=== PATIENT | male | born 1965 | race Caucasian/White ===

== ENCOUNTER 2020-03-16 06:04 | Outpatient (REF) | payer OTHER, SELFPAY | END 2020-03-16 06:05 | disposition home or self-care (01) | LOC: HO.LAB 06:04 | PROVIDERS: Visit Provider Internal Medicine | DX: Z20.828 Contact with and (suspected) exposure to other viral communicable diseases (principal) | CPT/HCPCS: C9803; U0003 ==

== ENCOUNTER 2020-09-26 06:03 | Outpatient (REF) | payer OTHER, SELFPAY ==
[2020-09-26 12:09] LABS: Alanine Aminotransferase 27 U/L (0-40); Albumin Level 4.1 g/dL (3.5-5.0); Alkaline Phosphatase 131 U/L (39-117); Anion Gap 15 (12-20); Aspartate Amino Transferase 20 U/L (5-37); Bilirubin Total 0.7 mg/dL (0.0-1.0); Blood Urea Nitrogen 16 mg/dL (9-16); Calcium 9.1 mg/dL (8.4-10.2); Carbon Dioxide 26 mmol/L (22-29); Chloride 99 mmol/L (96-108); Cholesterol 191 mg/dL; Estimated Glomerular Filt Rate > 60; Glucose Fasting 130 mg/dL (60-99); HDL Cholesterol 63 mg/dL; LDL Cholesterol Calculated 105 mg/dl; Potassium 4.7 mmol/L (3.3-5.1); Sodium 135 mmol/L (135-145); Total Protein 7.1 g/dL (6.5-8.0); Triglycerides 117 mg/dL
[2020-09-26 12:31] LABS: Prostate Specific Antigen Scr 0.89 ng/mL (<0.05-4.0); TSH reflex Free T4 2.43 uIU/mL (0.32-4.0)
== END 2020-09-26 06:04 | disposition home or self-care (01) ==
LOC: HO.HMGCLDS 06:03
PROVIDERS: PCP Nurse Practitioner Family; Visit Provider Nurse Practitioner Family
DX: Z00.00 Encounter for general adult medical examination without abnormal findings (principal); R74.8 Abnormal levels of other serum enzymes; R73.01 Impaired fasting glucose; Z12.5 Encounter for screening for malignant neoplasm of prostate
CPT/HCPCS: 36415; 80053; 80061; 84153; 84443

== ENCOUNTER 2020-11-20 08:22 | Outpatient (REF) | payer OTHER, SELFPAY ==
[2020-11-20 11:35] LABS: Estimated Average Glucose 137 mg/dL; Hemoglobin A1c % 6.4 %
[2020-11-20 12:26] LABS: Gamma Glutamyl Transpeptidase 93 U/L (11-51)
== END 2020-11-20 08:23 | disposition home or self-care (01) ==
LOC: HO.HMGCLDS 08:22
PROVIDERS: PCP Nurse Practitioner Family; Visit Provider Nurse Practitioner Family
DX: R73.01 Impaired fasting glucose (principal); R74.8 Abnormal levels of other serum enzymes
CPT/HCPCS: 36415; 82977; 83036

== ENCOUNTER 2021-03-05 18:43 | Emergency (ER) | payer OTHER, SELFPAY ==
--- NOTE | ~2021-03-05 | XR_ITS ---
EXAMINATION: XR CHEST CLINICAL INFORMATION: Cough. COMPARISON: None TECHNIQUE: Frontal view of the chest was obtained. FINDINGS: Patchy bilateral lower lobe airspace opacities which could represent atelectasis versus early infiltrates. No pleural effusion or pneumothorax. No cardiomegaly. XR/XR chest 1V IMPRESSION: Patchy bilateral atelectasis versus early infiltrates.
[2021-03-05 18:58] VITALS: BP 145/86; PULSE 125; PULSE 130; RESP 22; TEMP 37.3; O2SAT 95; BMI 43.0
[2021-03-05 19:09] LABS: Glucose, Whole Blood 271 mg/dL (60-115)
--- NOTE | 2021-03-05 19:10 | ED.DIZZY ---
HPI - Dizziness General Chief Complaint: Dizziness Stated Complaint: weakness afib Time Seen by Provider: 03/05/21 19:06 Source: patient Mode of arrival: ambulatory Limitations: no limitations History of Present Illness HPI Narrative: Patient's history of hypertension prediabetic not on any medication HB A1c 6.4 in 12/02 complaining of body aches tiredness cough for last 3 weeks patient took edible marijuana earlier today which he takes all the time since been feeling anxious and lousy also complaining of cough for last few days mostly dry. No fever no chills patient not been vaccinated against COVID Related Data Previous Rx's Medication Instructions Recorded lisinopril 40 mg tablet 40 mg PO DAILY #90 tab 12/12/20 omeprazole 20 mg capsule,delayed 20 mg PO DAILY 30 Days #30 cap 12/12/20 release amlodipine 10 mg tablet 10 mg PO DAILY 90 Days #90 tab 02/15/21 blood-glucose meter #1 ea 03/05/21 cefuroxime axetil 500 mg tablet 500 mg PO BID 10 Days #20 tab 03/05/21 lancets 32 gauge #100 ea 03/05/21 metformin 850 mg tablet 850 mg PO BID #60 tab 03/05/21 Allergies Allergy/AdvReac Type Severity Reaction Status Date / Time No Known Allergies Allergy Verified 02/15/21 08:47 Review of Systems Review of Systems: Yes all other systems are reviewed and are negative [facility] Past Medical History Medical History (Updated 03/05/21 @ 22:51 by Shashi Mccloud MD) Carpal tunnel syndrome Chronic GERD Diabetes mellitus type 2 in obese HTN (hypertension) Hyperkalemia Tremor Surgical History History of inguinal hernia repair History of vasectomy Family History Family History Father Breast cancer Mental health disorder Substance use disorder Mother Liver cancer Substance use disorder Brother No problems noted. Sister No problems noted. Sister No problems noted. Sister No problems noted. Social History Social History Housing: Other Patient Tobacco Use Status: Former Tobacco user (quit 28 years ago ) Advance Directives: No Current occupational status: employed Physical Exam Vital Signs: Vital Signs: Last Vital Signs Temp 99.1 F 03/05/21 18:58 Pulse 125 H 03/05/21 18:58 Resp 22 H 03/05/21 18:58 Pulse Ox 95 03/05/21 18:58 Body Mass Index 43.0 Appearance: Alert. Oriented X3. No acute distress. Eyes: No pallor icterus ENT: Pharynx normal. Oral Mucosa moist Neck: Normal inspection. Neck supple. CVS: Normal heart rate and rhythm. Pulses normal. Respiratory: No respiratory distress. Equal air entry bilateral, no wheezing/rales/rhonchi Abdomen: Soft and nontender. Bowel sounds are present, no mass palpable, no CVA tenderness Skin: Skin warm and dry. Normal skin color. Normal skin turgor. Extremities: No lower extremity edema. No calf tenderness Neuro: Oriented X 3. No motor deficit. MDM - Dizziness MDM Narrative Medical decision making narrative: Patient diabetic not on medications will start him on metformin, chest x-ray of a possible bronchitis will start patient on Ceftin otherwise patient labs are stable will discharge patient home Lab Data Attestation: I reviewed the patient's lab results. Result diagrams: 03/05/21 19:47 03/05/21 19:47 Labs: Lab Results 03/05/21 03/05/21 03/05/21 Range/Units 19:05 19:43 19:47 WBC 10.1 (4.8-10.8) X10*3/uL RBC 4.48 L (4.60-5.80) X10*6/uL Hgb 14.2 (14.0-18.0) g/dl Hct 42.2 (42.0-52.0) % MCV 94.2 (80.0-98.0) fL MCH 31.7 (27.0-33.0) pg MCHC 33.6 (31.0-36.0) g/dl RDW 12.8 (11.0-16.0) % Plt Count 211 (160-400) X10*3/uL MPV 9.4 (9.4-12.4) fL Immature Gran % (Auto) 1.8 H (0.0-0.4) % Neut % (Auto) 79.6 H (45-73) % Lymph % (Auto) 9.1 L (20-40) % [place] % (Auto) 8.4 (2-11) % Eos % (Auto) 0.5 (0-4) % Baso % (Auto) 0.6 (0-2) % Lymph # (Auto) 0.9 L (1.2-4.9) X10*3/uL [place] # (Auto) 0.9 (0.1-1.2) X10*3/uL Eos # (Auto) 0.1 (0.0-0.4) X10*3/uL Baso # (Auto) 0.1 (0.0-0.2) X10*3/uL Abs Immat Gran (auto) 0.18 H (0.00-0.03) X10*3/uL Absolute Neuts (auto) 8.1 (2.0-8.3) x10*3/uL Absolute Nucleated RBC 0.000 (0.0-0.012) X10*3/uL Nucleated RBC % (auto) 0.0 (0.0-0.2) /100WBC Sodium (135-145) mmol/L Potassium (3.3-5.1) mmol/L Chloride (96-108) mmol/L Carbon Dioxide (22-29) mmol/L Anion Gap (12-20) BUN (9-16) mg/dL Creatinine (0.5-1.4) mg/dL Estim Creat Clear Calc Estimated GFR POC Glucose 271 H (60-115) mg/dL Random Glucose (60-115) mg/dL Estimat Average Glucose mg/dL Hemoglobin A1c % % Calcium (8.4-10.2) mg/dL Total Bilirubin (0.0-1.0) mg/dL AST (5-37) U/L ALT (0-40) U/L Alkaline Phosphatase (39-117) U/L Total Protein (6.5-8.0) g/dL Albumin (3.5-5.0) g/dL Urine Color Urine Appearance Urine pH (5.0-8.0) Ur Specific [place] (1.005-1.025) Urine Protein (NEG-TRACE) MG/DL Urine Glucose (UA) (NEG) MG/DL Urine Ketones (NEG) MG/DL Urine Blood (NEG) Urine Nitrite (NEG) Ur Leukocyte Esterase (NEG) Urine RBC (0) /HPF Urine WBC (0-4) /HPF Ur Squamous Epith Cells /LPF Urine Bacteria /LPF Hyaline Casts /LPF Influenza Type A (PCR) NEGATIVE (Negative) Influenza Type B (PCR) NEGATIVE (Negative) RSV RNA Qual (PCR) NEGATIVE (Negative) SARS-CoV-2 RNA (RT-PCR) NEGATIVE (Negative) 03/05/21 03/05/21 03/05/21 Range/Units 19:47 19:47 21:56 WBC (4.8-10.8) X10*3/uL RBC (4.60-5.80) X10*6/uL Hgb (14.0-18.0) g/dl Hct (42.0-52.0) % MCV (80.0-98.0) fL MCH (27.0-33.0) pg MCHC (31.0-36.0) g/dl RDW (11.0-16.0) % Plt Count (160-400) X10*3/uL MPV (9.4-12.4) fL Immature Gran % (Auto) (0.0-0.4) % Neut % (Auto) (45-73) % Lymph % (Auto) (20-40) % [place] % (Auto) (2-11) % Eos % (Auto) (0-4) % Baso % (Auto) (0-2) % Lymph # (Auto) (1.2-4.9) X10*3/uL [place] # (Auto) (0.1-1.2) X10*3/uL Eos # (Auto) (0.0-0.4) X10*3/uL Baso # (Auto) (0.0-0.2) X10*3/uL Abs Immat Gran (auto) (0.00-0.03) X10*3/uL Absolute Neuts (auto) (2.0-8.3) x10*3/uL Absolute Nucleated RBC (0.0-0.012) X10*3/uL Nucleated RBC % (auto) (0.0-0.2) /100WBC Sodium 133 L (135-145) mmol/L Potassium 4.6 (3.3-5.1) mmol/L Chloride 101 (96-108) mmol/L Carbon Dioxide 23 (22-29) mmol/L Anion Gap 14 (12-20) BUN 20 H (9-16) mg/dL Creatinine 0.97 (0.5-1.4) mg/dL Estim Creat Clear Calc 119.5 Estimated GFR > 60 POC Glucose 199 H (60-115) mg/dL Random Glucose 299 H (60-115) mg/dL Estimat Average Glucose 151 mg/dL Hemoglobin A1c % 6.9 % Calcium 8.3 L D (8.4-10.2) mg/dL Total Bilirubin 0.3 (0.0-1.0) mg/dL AST 21 (5-37) U/L ALT 31 (0-40) U/L Alkaline Phosphatase 139 H (39-117) U/L Total Protein 6.6 (6.5-8.0) g/dL Albumin 3.9 (3.5-5.0) g/dL Urine Color Urine Appearance Urine pH (5.0-8.0) Ur Specific [place] (1.005-1.025) Urine Protein (NEG-TRACE) MG/DL Urine Glucose (UA) (NEG) MG/DL Urine Ketones (NEG) MG/DL Urine Blood (NEG) Urine Nitrite (NEG) Ur Leukocyte Esterase (NEG) Urine RBC (0) /HPF Urine WBC (0-4) /HPF Ur Squamous Epith Cells /LPF Urine Bacteria /LPF Hyaline Casts /LPF Influenza Type A (PCR) (Negative) Influenza Type B (PCR) (Negative) RSV RNA Qual (PCR) (Negative) SARS-CoV-2 RNA (RT-PCR) (Negative) 03/05/21 Range/Units 22:12 WBC (4.8-10.8) X10*3/uL RBC (4.60-5.80) X10*6/uL Hgb (14.0-18.0) g/dl Hct (42.0-52.0) % MCV (80.0-98.0) fL MCH (27.0-33.0) pg MCHC (31.0-36.0) g/dl RDW (11.0-16.0) % Plt Count (160-400) X10*3/uL MPV (9.4-12.4) fL Immature Gran % (Auto) (0.0-0.4) % Neut % (Auto) (45-73) % Lymph % (Auto) (20-40) % [place] % (Auto) (2-11) % Eos % (Auto) (0-4) % Baso % (Auto) (0-2) % Lymph # (Auto) (1.2-4.9) X10*3/uL [place] # (Auto) (0.1-1.2) X10*3/uL Eos # (Auto) (0.0-0.4) X10*3/uL Baso # (Auto) (0.0-0.2) X10*3/uL Abs Immat Gran (auto) (0.00-0.03) X10*3/uL Absolute Neuts (auto) (2.0-8.3) x10*3/uL Absolute Nucleated RBC (0.0-0.012) X10*3/uL Nucleated RBC % (auto) (0.0-0.2) /100WBC Sodium (135-145) mmol/L Potassium (3.3-5.1) mmol/L Chloride (96-108) mmol/L Carbon Dioxide (22-29) mmol/L Anion Gap (12-20) BUN (9-16) mg/dL Creatinine (0.5-1.4) mg/dL Estim Creat Clear Calc Estimated GFR POC Glucose (60-115) mg/dL Random Glucose (60-115) mg/dL Estimat Average Glucose mg/dL Hemoglobin A1c % % Calcium (8.4-10.2) mg/dL Total Bilirubin (0.0-1.0) mg/dL AST (5-37) U/L ALT (0-40) U/L Alkaline Phosphatase (39-117) U/L Total Protein (6.5-8.0) g/dL Albumin (3.5-5.0) g/dL Urine Color YELLOW Urine Appearance CLEAR Urine pH 6.0 (5.0-8.0) Ur Specific [place] 1.025 (1.005-1.025) Urine Protein 1+ H (NEG-TRACE) MG/DL Urine Glucose (UA) >=1000 H (NEG) MG/DL Urine Ketones NEG (NEG) MG/DL Urine Blood NEG (NEG) Urine Nitrite NEG (NEG) Ur Leukocyte Esterase NEG (NEG) Urine RBC 1-4 (0) /HPF Urine WBC 1-4 (0-4) /HPF Ur Squamous Epith Cells 1+ /LPF Urine Bacteria 1+ /LPF Hyaline Casts 5-9 /LPF Influenza Type A (PCR) (Negative) Influenza Type B (PCR) (Negative) RSV RNA Qual (PCR) (Negative) SARS-CoV-2 RNA (RT-PCR) (Negative) Discharge Plan Discharge Clinical Impression: Diabetes mellitus Qualifiers: Diabetes mellitus type: type 2 Diabetes mellitus superintendent terminal insulin use: without superintendent terminal use Diabetes mellitus complication status: without complication Qualified Code(s): E11.9 - Type 2 diabetes mellitus without complications Patient Disposition: Home, Self-Care Instructions: Type 2 Diabetes in Adults: New Diagnosis (ED), Acute Bronchitis (ED) Additional Instructions: Drink plenty of fluids Antibiotics as advised Diet and weight reduction therapy advised Start taking metformin 1 tablet twice daily Check blood sugar twice daily it should be less than 200 Follow-up with your PCP/sap technical developer for further workup Prescriptions: New metformin 850 mg tablet 850 mg PO BID Qty: 60 RF: 0 cefuroxime axetil 500 mg tablet 500 mg PO BID 10 Days Qty: 20 RF: 0 (DME) lancets 32 gauge misc See Rx Instructions .Route Qty: 100 RF: 0 (DME) blood-glucose meter Kit See Rx Instructions .Route Qty: 1 RF: 0 No Action omeprazole 20 mg capsule,delayed release(DR/EC) 20 mg PO DAILY 30 Days Qty: 30 RF: 2 lisinopril 40 mg tablet 40 mg PO DAILY Qty: 90 RF: 0 amlodipine 10 mg tablet 10 mg PO DAILY 90 Days Qty: 90 RF: 0 Referrals: Nina Martinez MD [Physician] - 2 weeks
[2021-03-05 19:50] LABS: MANUAL DIFF FLAG NO
[2021-03-05 19:52] LABS: Basophils Absolute Auto 0.1 X10*3/uL (0.0-0.2); Basophils Percent Auto 0.6 % (0-2); Eosinophils Absolute Auto 0.1 X10*3/uL (0.0-0.4); Eosinophils Percent Auto 0.5 % (0-4); Hematocrit 42.2 % (42.0-52.0); Hemoglobin 14.2 g/dl (14.0-18.0); Imm Gran Abs Auto 0.18 X10*3/uL (0.00-0.03); Imm Gran Pct Auto 1.8 % (0.0-0.4); Lymphocytes Absolute Auto 0.9 X10*3/uL (1.2-4.9); Lymphocytes Percent Auto 9.1 % (20-40); Mean Corpuscular HGB Conc 33.6 g/dl (31.0-36.0); Mean Corpuscular Hemoglobin 31.7 pg (27.0-33.0); Mean Corpuscular Volume 94.2 fL (80.0-98.0); Mean Platelet Volume 9.4 fL (9.4-12.4); Monocytes Absolute Auto 0.9 X10*3/uL (0.1-1.2); Monocytes Percent Auto 8.4 % (2-11); Neutrophils Absolute Auto 8.1 x10*3/uL (2.0-8.3); Neutrophils Percent Auto 79.6 % (45-73); Platelet Count 211 X10*3/uL (160-400); Red Blood Count 4.48 X10*6/uL (4.60-5.80); Red Cell Distribution Width 12.8 % (11.0-16.0); White Blood Count 10.1 X10*3/uL (4.8-10.8)
[2021-03-05] MEDS: 0.9 % Sodium Chloride 1,000 ML 999 ML IVCONT (19:53)
[2021-03-05] MEDS: Ketorolac Tromethamine 15 MG/ML VIAL 30 MG IVPUSH (19:53)
[2021-03-05 20:07] LABS: Alanine Aminotransferase 31 U/L (0-40); Albumin Level 3.9 g/dL (3.5-5.0); Alkaline Phosphatase 139 U/L (39-117); Anion Gap 14 (12-20); Aspartate Amino Transferase 21 U/L (5-37); Bilirubin Total 0.3 mg/dL (0.0-1.0); Blood Urea Nitrogen 20 mg/dL (9-16); Calcium 8.3 mg/dL (8.4-10.2); Carbon Dioxide 23 mmol/L (22-29); Chloride 101 mmol/L (96-108); Creatinine Clr Calc Pharmacy 119.5; Estimated Glomerular Filt Rate > 60; Glucose Random 299 mg/dL (60-115); Potassium 4.6 mmol/L (3.3-5.1); Sodium 133 mmol/L (135-145); Total Protein 6.6 g/dL (6.5-8.0)
[2021-03-05 20:36] LABS: Influenza A PCR NEGATIVE (Negative); Influenza B PCR NEGATIVE (Negative); Resp Syncy Virus RNA Qual PCR NEGATIVE (Negative); SARS COV2 PCR INHOUSE NEGATIVE (Negative)
[2021-03-05 22:01] LABS: Glucose, Whole Blood 199 mg/dL (60-115)
[2021-03-05 22:17] LABS: Estimated Average Glucose 151 mg/dL; Hemoglobin A1c % 6.9 %
[2021-03-05 22:22] LABS: Appearance Urine CLEAR; Color Urine YELLOW; Glucose Urine UA >=1000 MG/DL (NEG); Leukocyte Esterase Urine NEG (NEG); Nitrite Urine NEG (NEG); Specific Gravity - Urine 1.025 (1.005-1.025); UACC Culture Trigger NO; Urine Blood NEG (NEG); Urine Ketones NEG (NEG); Urine Protein 1+ MG/DL (NEG-TRACE)
[2021-03-05 22:51] LABS: Bacteria Urine 1+ /LPF; Squamous Epithelial Cell Urine 1+ /LPF
[2021-03-05] MEDS: metFORMIN HCl 850 MG TABLET PO (22:57)
== END 2021-03-06 00:52 | disposition home or self-care (01) ==
PROVIDERS: Emergency Provider Internal Medicine
DX: E11.9 Type 2 diabetes mellitus without complications (principal); Z20.822 Contact with and (suspected) exposure to COVID-19; R42 Dizziness and giddiness; R53.1 Weakness; I10 Essential (primary) hypertension
CPT/HCPCS: 0241U; 36415; 71045; 80053; 81001; 82947; 83036; 85025; 96361; 96374; 99284; J1885

== ENCOUNTER 2021-05-09 06:00 | Emergency (ER) | payer OTHER, SELFPAY ==
--- NOTE | ~2021-05-09 | XR_ITS ---
EXAMINATION: XR CHEST CLINICAL INFORMATION: Chest pain COMPARISON: 03/05/2021 TECHNIQUE: Frontal view of the chest was obtained. FINDINGS: Cardiac leads overlie the chest. The lungs are well expanded. Patchy airspace opacity at the right base. No pleural effusion or pneumothorax. The cardiomediastinal silhouette is within normal limits. XR/XR chest 1V IMPRESSION: Patchy right basilar airspace opacity could be infectious or inflammatory. Atelectasis possible.
[2021-05-09 06:21] VITALS: BP 149/96; PULSE 106; RESP 18; TEMP 37; O2SAT 97; BMI 43.0
--- NOTE | 2021-05-09 06:39 | ECG_ITS ---
Test Reason : CHEST PAIN Blood Pressure : / mmHG Vent. Rate : 098 BPM Atrial Rate : 098 BPM P-R Int : 186 ms QRS Dur : 110 ms QT Int : 356 ms P-R-T Axes : 047 047 027 degrees QTc Int : 454 ms Normal sinus rhythm Cannot rule out Anterior infarct , age undetermined Abnormal ECG No previous ECGs available Referred By: Noe Lopez Electronically Signed By:TERRY JAMES MD
--- NOTE | 2021-05-09 06:46 | ED_ITS ---
HPI - Chest Pain General Chief Complaint: Chest Pain Stated Complaint: chest pain, BS level? Time Seen by Provider: 05/09/21 06:38 Source: patient Limitations: no limitations History of Present Illness HPI narrative: This is a 55-year-old male with a history of hypertension, and recent diagnosis of diabetes, also elevated cholesterol who is on 2 blood pressure medications as well as metformin, and a statin. The patient for about a week has had some soreness in his mid chest which she attributed to muscular pain. He states that it did get better with ibuprofen and is worse when he pushes on the area. This pain was mild. 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 Later in the morning around 05:00 the patient went on break and began to feel dizzy and decided to come to the hospital for evaluation. He denies any nausea, sweats, shortness of breath, radiation of the pain. He is not a smoker, having quit about 25 years ago. He does have an outpatient echocardiogram scheduled Related Data Previous Rx's Medication Instructions Recorded amlodipine 10 mg tablet 10 mg PO DAILY 90 Days #90 tab 02/15/21 blood-glucose meter #1 ea 03/05/21 cefuroxime axetil 500 mg tablet 500 mg PO BID 10 Days #20 tab 03/05/21 omeprazole 20 mg capsule,delayed 20 mg PO DAILY 30 Days #30 cap 03/07/21 release atorvastatin 10 mg tablet 10 mg PO BEDTIME 90 Days #90 tab 03/12/21 lisinopril 40 mg tablet 40 mg PO DAILY #90 tab 03/28/21 metformin 850 mg tablet 850 mg PO BID #60 tab 03/28/21 blood sugar diagnostic (FreeStyle #100 ea 04/23/21 Lite Strips) lancets 32 gauge #100 ea 04/23/21 Allergies Allergy/AdvReac Type Severity Reaction Status Date / Time No Known Allergies Allergy Verified 04/23/21 10:03 Review of Systems Verdana 4l Review of Systems: Yes all other systems are reviewed and Verdana 4d are negative Verdana 4l Constitutional: Verdana 4d Constitutional: Verdana 4d Verdana 4d Reports as per HPI Verdana 4l Eyes: Verdana 4d Verdana 4d Eyes: Verdana 4d Reports no additional eye complaints Verdana 4l ENT: Verdana 4d Reports system reviewed and no additional complaints, except as documented and Reports dizziness Verdana 4l Cardiovascular: Verdana 4d Cardiovascular: Verdana 4d Verdana 4d Reports as per HPI and Denies syncope Verdana 4l Respiratory: Verdana 4d Verdana 4d Respiratory: Verdana 4d Reports no additional respiratory complaints Verdana 4l Gastrointestinal: Verdana 4d Gastrointestinal: Verdana 4d Verdana 4d Reports no additional gastrointestinal complaints Verdana 4l Musculoskeletal: Verdana 4d Musculoskeletal: Verdana 4d Verdana 4d Reports no additional musculoskeletal complaints Verdana 4l Integumentary/Breasts: Verdana 4d Skin/Breast: Verdana 4d Verdana 4d Reports other (No lower extremity swelling) Verdana 4l Neurologic: Verdana 4d Reports dizziness, Denies syncope and Denies Sensory deficit (Neuro) [facility] Past Medical History Medical History Carpal tunnel syndrome Chronic GERD Diabetes mellitus type 2 in obese HTN (hypertension) Hyperkalemia Tremor Surgical History History of inguinal hernia repair History of vasectomy Family History Family History Father Breast cancer Mental health disorder Substance use disorder Mother Liver cancer Substance use disorder Brother No problems noted. Sister No problems noted. Sister No problems noted. Sister No problems noted. Social History Social History Housing: Other Alcohol intake: current Alcohol intake frequency: a few times a week Patient Tobacco Use Status: Former Tobacco user e-Cigarette/Vaping Use: Never Used Use of substances other than those prescribed or required for medical reasons: No Advance Directives: No Advance Directives Information Provided: No Current occupational status: employed Cognitive needs: No Hearing needs: No Vision needs: No Physical Exam Verdana 4l Vital Signs: Verdana 4d Verdana 4d Vital Signs: Verdana 4d Verdana 4Bd Last Vital Signs Verdana 4d Road Roller Operator New 4d Road Roller Operator New 4d Temp 98.6 F 05/09/21 07:04 Road Roller Operator New 4d Pulse 103 H 05/09/21 07:04 Road Roller Operator New 4d Resp 19 05/09/21 07:04 BP 138/94 H 05/09/21 07:04 Pulse Ox 96 05/09/21 07:04 BMI result Body Mass Index 43.0 Const: Other: Moderately obese General: cooperative, no acute distress and alert Orientat ion/consciousness: patient oriented x3 HENMT: Head: Yes normal to inspection Eyes: General: appearance normal, both eyes and all related structures Eyelids: Yes eyelids normal Conjunctivae: conjunctivae normal Pupils: Equal, round and reactive pupils present Neck: Neck: Yes normal visual inspection and Yes supple Chest: Chest palpation & inspection: normal inspection of the chest Resp: Effort & Inspection: normal respiratory effort Auscultation: clear to auscultation bilaterally Cardio: Rate: tachycardic Rhythm: regular rhythm Heart sounds: S1 normal heart sound present, S2 normal heart sound present, no gallops, no murmurs and no rubs GI: Palpation (GI): Soft to palpation, nontender and Other GI palpation findings present (Non-distended) Auscultation: normal bowel sounds Skin: General skin exam: no rashes or lesions noted Neuro: General: patient oriented x3, no focal motor deficits and CN's II-XI intact bilaterally Cranial nerves: Yes Equal, round and reactive pupils present Cognition (Neuro): normal cognition Motor exam (neuro): 5/5 motor strength present throughout Sensory Exam: No Sensory deficit (Neuro) Extrem: General: Yes normal to inspection and Yes no pedal edema Psych: Appearance: grossly normal Affect: normal affect MDM - Chest Pain MDM Narrative Medical decision making narrative: Patient with risk factors for coronary disease include hypertension, diabetes, hypercholesterolemia, obesity. Patient has had stuttering chest pain that he thought was likely chest wall pain but was midsternal. Pain had different pain last night which was more left-sided, though mild but was later associated with dizziness. Patient does have persistent tachycardia here. D-dimer is negative. Troponin x2 were negative. Patient does have poor R-wave progression on his EKG which might suggest prior anterior infarct. Case discussed with Dr. Tran of Cardiology who recommend the patient have a stat echo to evaluate for any wall motion abnormality, and if there is none the patient can be admitted here for stress testing. Patient has been pain-free in the ED Dr. Tran recommended stress testing in the ED. This was done and was negative and Dr. Tran has advised that the patient can be discharged home. Patient has remained pain-free. Patient has had 2- troponins, negative D-dimer, negative echocardiogram, negative stress test. Patient does have risk factors for coronary disease but at this point has had a thorough evaluation and is safe for outpatient follow-up. Differential Diagnosis Differential diagnosis: Likely unstable angina pectoris, atypical chest pain, st elevation myocardial infarction and costochondritis Lab Data Attestation: I reviewed the patient's lab results. Result diagrams: 05/09/21 07:28 05/09/21 07:22 Labs: Lab Results 05/09/21 05/09/21 05/09/21 Range/Units 07:11 07:22 07:23 WBC (4.8-10.8) X10*3/uL RBC (4.60-5.80) X10*6/uL Hgb (14.0-18.0) g/dl Hct (42.0-52.0) % MCV (80.0-98.0) fL MCH (27.0-33.0) pg MCHC (31.0-36.0) g/dl RDW (11.0-16.0) % Plt Count (160-400) X10*3/uL MPV (9.4-12.4) fL Immature Gran % (Auto) (0.0-0.4) % Neut % (Auto) (45-73) % Lymph % (Auto) (20-40) % [place] % (Auto) (2-11) % Eos % (Auto) (0-4) % Baso % (Auto) (0-2) % Lymph # (Auto) (1.2-4.9) X10*3/uL [place] # (Auto) (0.1-1.2) X10*3/uL Eos # (Auto) (0.0-0.4) X10*3/uL Baso # (Auto) (0.0-0.2) X10*3/uL Abs Immat Gran (auto) (0.00-0.03) X10*3/uL Absolute Neuts (auto) (2.0-8.3) x10*3/uL Absolute Nucleated RBC (0.0-0.012) X10*3/uL Nucleated RBC % (auto) (0.0-0.2) /100WBC D-Dimer High Sensitivty NG/ML Sodium 132 L (135-145) mmol/L Potassium 4.6 (3.3-5.1) mmol/L Chloride 99 (96-108) mmol/L Carbon Dioxide 25 (22-29) mmol/L Anion Gap 13 (12-20) BUN 19 H (9-16) mg/dL Creatinine 0.93 (0.5-1.4) mg/dL Estim Creat Clear Calc 128.4 Estimated GFR > 60 POC Glucose 105 (60-115) mg/dL Random Glucose 112 D (60-115) mg/dL Calcium 9.0 D (8.4-10.2) mg/dL Troponin I High Sens 7.5 (<3.5-35.0) ng/L COVID-19 ([facility]) (Negative) COVID-19 Clin Com 05/09/21 05/09/21 05/09/21 Range/Units 07:28 08:02 08:50 WBC 8.6 (4.8-10.8) X10*3/uL RBC 4.67 (4.60-5.80) X10*6/uL Hgb 14.0 (14.0-18.0) g/dl Hct 42.5 (42.0-52.0) % MCV 91.0 (80.0-98.0) fL MCH 30.0 (27.0-33.0) pg MCHC 32.9 (31.0-36.0) g/dl RDW 12.3 (11.0-16.0) % Plt Count 227 (160-400) X10*3/uL MPV 9.3 L (9.4-12.4) fL Immature Gran % (Auto) 1.6 H (0.0-0.4) % Neut % (Auto) 68.9 (45-73) % Lymph % (Auto) 16.4 L (20-40) % [place] % (Auto) 10.5 (2-11) % Eos % (Auto) 1.9 (0-4) % Baso % (Auto) 0.7 (0-2) % Lymph # (Auto) 1.4 (1.2-4.9) X10*3/uL [place] # (Auto) 0.9 (0.1-1.2) X10*3/uL Eos # (Auto) 0.2 (0.0-0.4) X10*3/uL Baso # (Auto) 0.1 (0.0-0.2) X10*3/uL Abs Immat Gran (auto) 0.14 H (0.00-0.03) X10*3/uL Absolute Neuts (auto) 5.9 (2.0-8.3) x10*3/uL Absolute Nucleated RBC 0.000 (0.0-0.012) X10*3/uL Nucleated RBC % (auto) 0.0 (0.0-0.2) /100WBC D-Dimer High Sensitivty NG/ML Sodium (135-145) mmol/L Potassium (3.3-5.1) mmol/L Chloride (96-108) mmol/L Carbon Dioxide (22-29) mmol/L Anion Gap (12-20) BUN (9-16) mg/dL Creatinine (0.5-1.4) mg/dL Estim Creat Clear Calc Estimated GFR POC Glucose (60-115) mg/dL Random Glucose (60-115) mg/dL Calcium (8.4-10.2) mg/dL Troponin I High Sens 8.0 (<3.5-35.0) ng/L COVID-19 ([facility]) Negative (Negative) COVID-19 Clin Com See Note 05/09/21 Range/Units 08:50 WBC (4.8-10.8) X10*3/uL RBC (4.60-5.80) X10*6/uL Hgb (14.0-18.0) g/dl Hct (42.0-52.0) % MCV (80.0-98.0) fL MCH (27.0-33.0) pg MCHC (31.0-36.0) g/dl RDW (11.0-16.0) % Plt Count (160-400) X10*3/uL MPV (9.4-12.4) fL Immature Gran % (Auto) (0.0-0.4) % Neut % (Auto) (45-73) % Lymph % (Auto) (20-40) % [place] % (Auto) (2-11) % Eos % (Auto) (0-4) % Baso % (Auto) (0-2) % Lymph # (Auto) (1.2-4.9) X10*3/uL [place] # (Auto) (0.1-1.2) X10*3/uL Eos # (Auto) (0.0-0.4) X10*3/uL Baso # (Auto) (0.0-0.2) X10*3/uL Abs Immat Gran (auto) (0.00-0.03) X10*3/uL Absolute Neuts (auto) (2.0-8.3) x10*3/uL Absolute Nucleated RBC (0.0-0.012) X10*3/uL Nucleated RBC % (auto) (0.0-0.2) /100WBC D-Dimer High Sensitivty 210 NG/ML Sodium (135-145) mmol/L Potassium (3.3-5.1) mmol/L Chloride (96-108) mmol/L Carbon Dioxide (22-29) mmol/L Anion Gap (12-20) BUN (9-16) mg/dL Creatinine (0.5-1.4) mg/dL Estim Creat Clear Calc Estimated GFR POC Glucose (60-115) mg/dL Random Glucose (60-115) mg/dL Calcium (8.4-10.2) mg/dL Troponin I High Sens (<3.5-35.0) ng/L COVID-19 ([facility]) (Negative) COVID-19 Clin Com Imaging Data Chest x-ray: Radiologist's impression: IMPRESSION: Patchy right basilar airspace opacity could be infectious or inflammatory. Atelectasis possible. ECG Data ECG #1: ECG interpretation date: 05/09/21 ECG interpretation time: 07:19 Interpretation: Sinus rhythm with a rate of 98. Poor R-wave progression. Slight ST elevation versus early repolarization in leads V2 and V3. Discharge Plan Discharge Clinical Impression: Chest pain, HTN (hypertension), Tachycardia Patient Disposition: Home, Self-Care Instructions: Chest Pain (ED) Additional Instructions: Continue current medications. Follow-up with your primary care physician. Return for any new or worsened symptoms. Prescriptions: No Action omeprazole 20 mg capsule,delayed release(DR/EC) 20 mg PO DAILY 30 Days Qty: 30 2RF lisinopril 40 mg tablet 40 mg PO DAILY Qty: 90 0RF metformin 850 mg tablet 850 mg PO BID Qty: 60 3RF cefuroxime axetil 500 mg tablet 500 mg PO BID 10 Days Qty: 20 0RF (DME) blood-glucose meter Kit See Rx Instructions .Route Qty: 1 0RF Rx Instructions: As directed amlodipine 10 mg tablet 10 mg PO DAILY 90 Days Qty: 90 0RF atorvastatin 10 mg tablet 10 mg PO BEDTIME 90 Days Qty: 90 0RF (DME) FreeStyle Lite Strips Strip See Rx Instructions .Route Qty: 100 1RF Rx Instructions: bid (DME) lancets 32 gauge misc See Rx Instructions .Route Qty: 100 0RF Rx Instructions: As directed Stand Alone Forms: Work/School Release
[2021-05-09 07:04] VITALS: BP 138/94; PULSE 103; RESP 19; TEMP 37; O2SAT 96
[2021-05-09 07:15] LABS: Glucose, Whole Blood 105 mg/dL (60-115)
[2021-05-09] MEDS: Aspirin 81 MG TAB.CHEW 324 MG PO (07:27)
[2021-05-09 07:29] LABS: MANUAL DIFF FLAG NO
[2021-05-09 07:32] LABS: Basophils Absolute Auto 0.1 X10*3/uL (0.0-0.2); Basophils Percent Auto 0.7 % (0-2); Eosinophils Absolute Auto 0.2 X10*3/uL (0.0-0.4); Eosinophils Percent Auto 1.9 % (0-4); Hematocrit 42.5 % (42.0-52.0); Imm Gran Abs Auto 0.14 X10*3/uL (0.00-0.03); Imm Gran Pct Auto 1.6 % (0.0-0.4); Lymphocytes Absolute Auto 1.4 X10*3/uL (1.2-4.9); Lymphocytes Percent Auto 16.4 % (20-40); Mean Corpuscular HGB Conc 32.9 g/dl (31.0-36.0); Mean Platelet Volume 9.3 fL (9.4-12.4); Monocytes Absolute Auto 0.9 X10*3/uL (0.1-1.2); Monocytes Percent Auto 10.5 % (2-11); Neutrophils Absolute Auto 5.9 x10*3/uL (2.0-8.3); Neutrophils Percent Auto 68.9 % (45-73); Platelet Count 227 X10*3/uL (160-400); Red Blood Count 4.67 X10*6/uL (4.60-5.80); Red Cell Distribution Width 12.3 % (11.0-16.0); White Blood Count 8.6 X10*3/uL (4.8-10.8)
[2021-05-09] MEDS: 0.9 % Sodium Chloride 1,000 ML 999 ML IV (07:39)
[2021-05-09 07:46] LABS: Anion Gap 13 (12-20); Blood Urea Nitrogen 19 mg/dL (9-16); Carbon Dioxide 25 mmol/L (22-29); Chloride 99 mmol/L (96-108); Creatinine Clr Calc Pharmacy 128.4; Estimated Glomerular Filt Rate > 60; Glucose Random 112 mg/dL (60-115); Potassium 4.6 mmol/L (3.3-5.1); Sodium 132 mmol/L (135-145)
[2021-05-09 07:54] LABS: Troponin-I High Sensitivity 7.5 ng/L (<3.5-35.0)
[2021-05-09 08:29] LABS: COVID-19 Test Negative (Negative); IDNOW Serial# 9DD0AD1C
[2021-05-09 09:06] LABS: D Dimer High Sensitivity 210 NG/ML
--- NOTE | 2021-05-09 10:00 | CA_ITS ---
Transthoracic Echocardiogram Patient (Last, First, Middle): Chris Blackwood A Gender: Male Date of : 1965 Age: 55 Procedure Date: 05/09/2021 Procedure Type: Transthoracic Echocardiogram Location: ER Height: 180.34 cm Weight: 139.71 kg BSA: 2.53 m2 Heart Rate: bpm BP: 138 / 94 mmHg Skilled Laborer: Referring MD: Noe Lopez MD Physical Therapist Clinic Director: Enrique Tran MD Symptoms: assess for wall motion abnormality Study Quality: Fair ECG Rhythm: Sinus Conclusions: - 1. Normal LV systolic function with mild LVH with impaired relaxation filling pattern 2. Moderately dilated left atrium 3. Moderately dilated RV with borderline RV systolic function 4. Mild aortic regurgitation 5. Normal RV systolic pressure 6. Mildly dilated ascending aorta 7. No gross pericardial effusion Findings Procedure Information Contrast agent, definity, is being given per protocol without apparent complications. Left Ventricle Normal left ventricular size and systolic function. There is mildly increased left ventricular wall thickness. The visually estimated ejection fraction is between 55-60%. Spectral Doppler is indicative of an impaired relaxation filling pattern. E/E prime ratio is between 8 and 15 consistent with indeterminate filling pressures. Right Ventricle Moderately increased right ventricular cavity size. There is borderline right ventricular systolic function. Atria The left atrium is moderately dilated. There is lipomatous hypertrophy of the interatrial septum. There is no evidence of interatrial shunt. The right atrium is normal in size. Aortic Valve The aortic valve was not well visualized. There is no aortic valve stenosis. There is mild aortic valve regurgitation. Mitral Valve Likely normal mitral valve structure and function. There is trace mitral valve regurgitation. There is no mitral valve stenosis. Pulmonic Valve The pulmonic valve was not well visualized. Tricuspid Valve The tricuspid valve was not well visualized. There is trace tricuspid valve regurgitation. The right ventricular systolic pressure is normal. There is no evidence of pulmonary hypertension. Great Vessels The pulmonary artery was not well visualized. There is mild dilatation of the ascending aorta. Venous The inferior vena cava is normal in size. Pericardium/Pleural There is no evidence of pericardial effusion. Prior Study Comparison No prior study available for comparison. Measurements 2D Linear Measurements IVSd: 1.15 0.6-0.9/0.6-1.0 cm LVIDd: 4.82 3.9-5.3/4.2-5.9 cm LVIDd Index: 1.91 2.4-3.2/2.2-3.1 cm/m2 LVIDs: 2.73 2.0-3.6 cm LVPWd: 1.15 0.7-1.1 cm Ao Root: 3.50 2.1-3.5 cm LA Diam: 4.50 2.7-3.8/3.0-4.0 cm LAIDs Index: 1.78 1.5-2.3 cm/m2 LV Mass: 258.92 67-162/88-224 g LV Mass Index: 102.34 43-95/49-115 g/m2 LVOT Diam: 2.70 3.0+(-)1.3 cm Mitral Valve MV Pk E: 0.58 MV PK A: 1.10 MV Decel Time: 121.00 E/A: 0.50 E'Lateral: 9.03 E'Medial: 3.59 E/E' Med: 16.10 E/E' Lat: 6.40 PHT: 35.00 MVA PHT: 6.29 Decel [place]: 4.79 Aortic Valve AoV Pk Ulices: 1.53 AoV Mn Ulices: 0.95 AoV VTI: 0.29 AoV Pk Grad: 9.00 Aov Mn Grad: 4.00 VINCENZO Cont.VTI: 4.27 LVOT LVOT Pk Ulices: 1.12 LVOT Mn Ulices: 0.79 LVOT VTI: 0.22 LVOT Pk Grad: 5.00 LVOT Mn Grad: 3.00 LVOT Diam: 2.70 LVOT Area: 5.73 Diastolic Function MV Pk E: 0.58 MV Pk A: 1.10 E/A: 0.50 E'Medial: 3.59 E/E' Med: 16.10 E' Laterial: 9.03 E/E' Lat: 6.40 Tricuspid Valve TR Pk Ulices: 1.98 TR Pk Grad: 16.00 RA Press: 3.00 RVSP: 19.00 Great Vessels Aorta Ao Root-2D: 3.50 2.0-3.7 cm Ao Asc: 3.90 2.1-3.4 cm Pulmonary Valve PV Pk Ulices: 1.18 Peak PV Grad: 6.00 Updated in Other Vendor System with Status of Final Enrique Tran MD electronically signed on 05/09/2021 6:06:13 PM with status of Final
--- NOTE | 2021-05-09 12:16 | CA_ITS ---
Acquisition Time: 2021-05-09 12:52:25 Total Exercise Time: 00:07:00 Test Indications: Chest Pain Medications: AMLODIPINE ATORVASTATIN LISINOPRIL METFORMIN Protocol: REINA Max HR: 150 BPM 90% of Pred: 165 BPM Max BP: 164/090 mmHG Max Work Load: 8.5 METS Referred By: Noe Lopez Overread By: TERRY JAMES MD
[2021-05-09 14:29] VITALS: BP 155/96; PULSE 95; RESP 20; O2SAT 95
--- NOTE | 2021-05-09 16:28 | P.CONCA_ITS ---
History of Present Illness History of Present Illness Date of Service: 05/09/21 Requesting physician: Noe Lopez Consult reason: chest pain Chief complaint: Chest pain Narrative: I was consulted to see Chris in cardiology consultation for precordial chest discomfort. He presented emergency room today because he had last night at work precordial chest discomfort which she describes as fluttering, very mild. Symptoms lasted for couple of minutes. He continued to work. This morning when he was working he then got symptoms of lightheadedness which concerned him. He therefore came to the emergency room. Initial EKG in the ER did not show any acute ST T wave changes but showed poor R-wave progression. His troponins were negative. High due to his multiple risk factors, we did a bedside echocardiogram which showed no wall motion abnormality. He subsequently underwent a stress test which at moderate workload was negative for ischemia achieving greater than 85% age predicted maximal heart rate. He did not have any further chest discomfort. Review of Systems Verdana 4l Constitutional: Verdana 4d Constitutional: Verdana 4d Verdana 4d Reports no additional constitutional complaints Verdana 4l Eyes: Verdana 4d Verdana 4d Eyes: Verdana 4d Reports no additional eye complaints Verdana 4l ENT: Verdana 4d Reports system reviewed and no additional complaints, except as documented Verdana 4l Cardiovascular: Verdana 4d Cardiovascular: Verdana 4d Verdana 4d Reports chest pain, Reports lightheadedness and Reports other (Fluttering in his chest) Verdana 4l Respiratory: Verdana 4d Verdana 4d Respiratory: Verdana 4d Reports no additional respiratory complaints Verdana 4l Gastrointestinal: Verdana 4d Gastrointestinal: Verdana 4d Verdana 4d Reports no additional gastrointestinal complaints Verdana 4l Genitourinary: Verdana 4d Verdana 4d Genitourinary: Verdana 4d Reports no additional male genitourinary complaints Verdana 4l Musculoskeletal: Verdana 4d Musculoskeletal: Verdana 4d Verdana 4d Reports no additional musculoskeletal complaints Verdana 4l Integumentary/Breasts: Verdana 4d Skin/Breast: Verdana 4d Verdana 4d Reports system reviewed and no additional complaints, except as docu Verdana 4l Neurologic: Verdana 4d Reports system reviewed and no additional complaints, except as documented Verdana 4l Psychiatric: Verdana 4d Verdana 4d Psychiatric: Verdana 4d Reports no additional psychiatric complaints Verdana 4l Endocrine: Verdana 4d Verdana 4d Endocrine: Verdana 4d Reports no additional endocrine complaints Verdana 4l Hematologic/Lymphatic: Verdana 4d Hematologic/Lymphatic: Verdana 4d Verdana 4d Reports no additional hematologic/lymphatic complaints Verdana 4l Allergic/Immunologic: Verdana 4d Allergic/Immunologic: Verdana 4d Verdana 4d Reports no additional allergic/immunologic complaints PMFSH Past Medical History Medical History Carpal tunnel syndrome Chronic GERD Diabetes mellitus type 2 in obese HTN (hypertension) Hyperkalemia Tremor Family History Family History Father Breast cancer Mental health disorder Substance use disorder Mother Liver cancer Substance use disorder Brother No problems noted. Sister No problems noted. Sister No problems noted. Sister No problems noted. Surgical History Surgical History History of inguinal hernia repair History of vasectomy Social History Social History Housing: Other Alcohol intake: current Alcohol intake frequency: a few times a week Patient Tobacco Use Status: Former Tobacco user e-Cigarette/Vaping Use: Never Used Current occupational status: employed Cognitive needs: No Hearing needs: No Vision needs: No Meds Allergies Allergy/AdvReac Type Severity Reaction Status Date / Time No Known Allergies Allergy Verified 04/23/21 10:03 Physical Exam Verdana 4l Vital Signs: Verdana 4d Verdana 4d Vital Signs: Verdana 4d Verdana 4Bd Last Vital Signs Verdana 4d City Editor New 4d City Editor New 4d Temp 98.6 F 05/09/21 07:04 City Editor New 4d Pulse 95 05/09/21 14:29 City Editor New 4d Resp 20 05/09/21 14:29 BP 155/96 H 05/09/21 14:29 Pulse Ox 95 05/09/21 14:29 BMI result Body Mass Index 43.0 Const: General: cooperative, comfortable, no acute distress, alert and awake Nutritional Appearance: obese Orientation/consciousness: patient oriented x3 Limitations: no limitations HENMT: Head: Yes normocephalic and Yes atraumatic Neck: Neck: Yes trachea midline, Yes supple and Yes no JVD Chest: Chest palpation & inspection: normal inspection of the chest Resp: Effort & Inspection: normal respiratory effort Auscultation: clear to auscultation bilaterally Cardio: Jugular venous distension: no JVD Palpation: normal PMI Rate: regular rate Rhythm: regular rhythm Heart sounds: S1 normal heart sound present, S2 normal heart sound present, no click, no gallops, no murmurs and no rubs GI: Inspection: Yes obesity Auscultation: normal bowel sounds Skin: General skin exam: no rashes or lesions noted Neuro: General: patient oriented x3 and no focal motor deficits Extrem: General: Yes no clubbing, cyanosis or edema Psych: Appearance: grossly normal Objective Labs and Meds Result diagrams: 05/09/21 07:28 05/09/21 07:22 Lab results: Laboratory Results - last 24 hr 05/09/21 05/09/21 05/09/21 07:11 07:22 07:23 WBC RBC Hgb Hct MCV MCH MCHC RDW Plt Count MPV Immature Gran % (Auto) Neut % (Auto) Lymph % (Auto) [place] % (Auto) Eos % (Auto) Baso % (Auto) Lymph # (Auto) [place] # (Auto) Eos # (Auto) Baso # (Auto) Abs Immat Gran (auto) Absolute Neuts (auto) Absolute Nucleated RBC Nucleated RBC % (auto) D-Dimer High Sensitivty Sodium 132 L Potassium 4.6 Chloride 99 Carbon Dioxide 25 Anion Gap 13 BUN 19 H Creatinine 0.93 Estim Creat Clear Calc 128.4 Estimated GFR > 60 POC Glucose 105 Random Glucose 112 D Calcium 9.0 D Troponin I High Sens 7.5 COVID-19 ([facility]) COVID-19 Clin Com 05/09/21 05/09/21 05/09/21 07:28 08:02 08:50 WBC 8.6 RBC 4.67 Hgb 14.0 Hct 42.5 MCV 91.0 MCH 30.0 MCHC 32.9 RDW 12.3 Plt Count 227 MPV 9.3 L Immature Gran % (Auto) 1.6 H Neut % (Auto) 68.9 Lymph % (Auto) 16.4 L [place] % (Auto) 10.5 Eos % (Auto) 1.9 Baso % (Auto) 0.7 Lymph # (Auto) 1.4 [place] # (Auto) 0.9 Eos # (Auto) 0.2 Baso # (Auto) 0.1 Abs Immat Gran (auto) 0.14 H Absolute Neuts (auto) 5.9 Absolute Nucleated RBC 0.000 Nucleated RBC % (auto) 0.0 D-Dimer High Sensitivty Sodium Potassium Chloride Carbon Dioxide Anion Gap BUN Creatinine Estim Creat Clear Calc Estimated GFR POC Glucose Random Glucose Calcium Troponin I High Sens 8.0 COVID-19 ([facility]) Negative COVID-19 Clin Com See Note 05/09/21 08:50 WBC RBC Hgb Hct MCV MCH MCHC RDW Plt Count MPV Immature Gran % (Auto) Neut % (Auto) Lymph % (Auto) [place] % (Auto) Eos % (Auto) Baso % (Auto) Lymph # (Auto) [place] # (Auto) Eos # (Auto) Baso # (Auto) Abs Immat Gran (auto) Absolute Neuts (auto) Absolute Nucleated RBC Nucleated RBC % (auto) D-Dimer High Sensitivty 210 Sodium Potassium Chloride Carbon Dioxide Anion Gap BUN Creatinine Estim Creat Clear Calc Estimated GFR POC Glucose Random Glucose Calcium Troponin I High Sens COVID-19 ([facility]) COVID-19 Clin Com Imaging Radiologist's impression: Impressions Chest X-Ray 05/09/21 06:50 IMPRESSION: Patchy right basilar airspace opacity could be infectious or inflammatory. Atelectasis possible. Assessment and Plan (1) Chest pain: Status: Acute Atypical chest pain in a middle-aged man with multiple risk factors with negative troponins and negative stress test at good workload. Unlikely to be due to myocardial ischemia/CAD. Good prognosis with this was discussed. His echocardiogram also shows normal LV systolic function. Will review the full echocardiogram. His blood pressure is not well controlled. Needs better control. He also has high risk for sleep apnea and should be worked up as such. His symptoms of fluttering in the chest appear to be more related to PVCs. Will obtain Holter monitor as outpatient. Patient can be discharged from the emergency room. Plan will follow-up as outpatient after Holter monitor. Thank you for allowing me to partake in his care Procedures Date of Service Date of Service: 05/09/21
== END 2021-05-09 14:31 | disposition home or self-care (01) ==
PROVIDERS: Emergency Provider Emergency Medicine; PCP Nurse Practitioner Family
DX: R07.9 Chest pain, unspecified (principal); I10 Essential (primary) hypertension; R00.0 Tachycardia, unspecified; Z20.822 Contact with and (suspected) exposure to COVID-19; E11.9 Type 2 diabetes mellitus without complications; E78.00 Pure hypercholesterolemia, unspecified; Z87.891 Personal history of nicotine dependence; Z79.02 Long term (current) use of antithrombotics/antiplatelets
CPT/HCPCS: 36415; 71045; 80048; 82947; 84484; 85025; 85379; 87635; 93005; 93017; 93306; 96360; 99284; Q9957

== ENCOUNTER 2021-07-23 06:49 | Outpatient (REF) | payer OTHER, SELFPAY ==
[2021-07-23 11:18] LABS: Appearance Urine CLEAR; Color Urine YELLOW; Glucose Urine UA NEG (NEG); Leukocyte Esterase Urine NEG (NEG); Nitrite Urine NEG (NEG); PH 5.5 (5.0-8.0); Specific Gravity - Urine 1.025 (1.005-1.025); Urine Blood NEG (NEG); Urine Ketones NEG (NEG); Urine Protein NEG (NEG-TRACE)
[2021-07-23 11:34] LABS: Alanine Aminotransferase 40 U/L (0-40); Albumin Level 4.3 g/dL (3.5-5.0); Alkaline Phosphatase 134 U/L (39-117); Anion Gap 15 (12-20); Aspartate Amino Transferase 23 U/L (5-37); Bilirubin Total 0.5 mg/dL (0.0-1.0); Blood Urea Nitrogen 17 mg/dL (9-16); Calcium 9.5 mg/dL (8.4-10.2); Carbon Dioxide 25 mmol/L (22-29); Chloride 102 mmol/L (96-108); Cholesterol 141 mg/dL; Estimated Glomerular Filt Rate > 60; Glucose Fasting 100 mg/dL (60-99); HDL Cholesterol 48 mg/dL; LDL Cholesterol Calculated 82 mg/dl; Potassium 4.6 mmol/L (3.3-5.1); Sodium 137 mmol/L (135-145); Total Protein 7.2 g/dL (6.5-8.0); Triglycerides 55 mg/dL
[2021-07-23 12:09] LABS: Creatinine Urine 152.09 mg/dL; Microalbum/Creatinine Ratio Ur 8.5 ug/mg cr
== END 2021-07-23 06:50 | disposition home or self-care (01) ==
LOC: HO.HMGCLDS 06:49
PROVIDERS: Visit Provider Nurse Practitioner Family
DX: I10 Essential (primary) hypertension (principal); E11.69 Type 2 diabetes mellitus with other specified complication; E66.9 Obesity, unspecified
CPT/HCPCS: 36415; 80053; 80061; 81003; 82043; 84443

== ENCOUNTER 2022-02-25 06:45 | Outpatient (REF) | payer OTHER, SELFPAY ==
[2022-02-25 11:27] LABS: MANUAL DIFF FLAG NO
[2022-02-25 11:48] LABS: Basophils Absolute Auto 0.1 X10*3/uL (0.0-0.2); Basophils Percent Auto 0.9 % (0-2); Eosinophils Absolute Auto 0.2 X10*3/uL (0.0-0.4); Eosinophils Percent Auto 2.6 % (0-4); Hematocrit 44.8 % (42.0-52.0); Hemoglobin 15.1 g/dl (14.0-18.0); Imm Gran Abs Auto 0.13 X10*3/uL (0.00-0.03); Imm Gran Pct Auto 1.9 % (0.0-0.4); Lymphocytes Absolute Auto 1.5 X10*3/uL (1.2-4.9); Lymphocytes Percent Auto 20.9 % (20-40); Mean Corpuscular HGB Conc 33.7 g/dl (31.0-36.0); Mean Corpuscular Hemoglobin 30.4 pg (27.0-33.0); Mean Corpuscular Volume 90.3 fL (80.0-98.0); Mean Platelet Volume 9.7 fL (9.4-12.4); Monocytes Absolute Auto 0.9 X10*3/uL (0.1-1.2); Monocytes Percent Auto 12.6 % (2-11); Neutrophils Absolute Auto 4.2 x10*3/uL (2.0-8.3); Neutrophils Percent Auto 61.1 % (45-73); Platelet Count 270 X10*3/uL (160-400); Red Blood Count 4.96 X10*6/uL (4.60-5.80); Red Cell Distribution Width 12.6 % (11.0-16.0); White Blood Count 6.9 X10*3/uL (4.8-10.8)
[2022-02-25 11:49] LABS: Appearance Urine Clear; Color Urine Yellow; Glucose Urine UA Negative (Negative); Leukocyte Esterase Urine Negative (Negative); Nitrite Urine Negative (Negative); Urine Blood Negative (Negative); Urine Ketones Negative (Negative); Urine Protein Negative (Neg-Trace)
[2022-02-25 11:50] LABS: Estimated Average Glucose 120 mg/dL; Hemoglobin A1c % 5.8 %
[2022-02-25 12:05] LABS: Alanine Aminotransferase 23 U/L (0-40); Albumin Level 4.1 g/dL (3.5-5.0); Alkaline Phosphatase 136 U/L (39-117); Anion Gap 14 (12-20); Aspartate Amino Transferase 19 U/L (5-37); Bilirubin Total 0.5 mg/dL (0.0-1.0); Blood Urea Nitrogen 14 mg/dL (9-16); Calcium 9.2 mg/dL (8.4-10.2); Carbon Dioxide 25 mmol/L (22-29); Chloride 99 mmol/L (96-108); Cholesterol 176 mg/dL; Estimated Glomerular Filt Rate > 60; Glucose Fasting 108 mg/dL (60-99); HDL Cholesterol 58 mg/dL; LDL Cholesterol Calculated 103 mg/dl; Potassium 4.2 mmol/L (3.3-5.1); Sodium 134 mmol/L (135-145); Total Protein 7.1 g/dL (6.5-8.0); Triglycerides 75 mg/dL
[2022-02-25 12:29] LABS: Prostate Specific Antigen Scr 1.36 ng/mL (<0.05-4.0)
== END 2022-02-25 06:46 | disposition home or self-care (01) ==
LOC: HO.HMGCLDS 06:45
PROVIDERS: PCP Nurse Practitioner Family; Visit Provider Nurse Practitioner Family
DX: Z12.5 Encounter for screening for malignant neoplasm of prostate (principal); E11.69 Type 2 diabetes mellitus with other specified complication; E66.9 Obesity, unspecified
CPT/HCPCS: 36415; 80053; 80061; 81003; 83036; 84153; 84443; 85025

== ENCOUNTER 2022-08-13 07:12 | Outpatient (REF) | payer OTHER, SELFPAY ==
[2022-08-13 11:16] LABS: MANUAL DIFF FLAG NO
[2022-08-13 11:32] LABS: Basophils Absolute Auto 0.1 X10*3/uL (0.0-0.2); Basophils Percent Auto 1.3 % (0-2); Eosinophils Absolute Auto 0.1 X10*3/uL (0.0-0.4); Eosinophils Percent Auto 1.6 % (0-4); Hematocrit 45.3 % (42.0-52.0); Hemoglobin 14.8 g/dl (14.0-18.0); Imm Gran Abs Auto 0.17 X10*3/uL (0.00-0.03); Imm Gran Pct Auto 2.1 % (0.0-0.4); Lymphocytes Absolute Auto 1.6 X10*3/uL (1.2-4.9); Lymphocytes Percent Auto 19.7 % (20-40); Mean Corpuscular HGB Conc 32.7 g/dl (31.0-36.0); Mean Corpuscular Hemoglobin 30.4 pg (27.0-33.0); Mean Platelet Volume 10.2 fL (9.4-12.4); Monocytes Percent Auto 11.9 % (2-11); Neutrophils Absolute Auto 5.2 x10*3/uL (2.0-8.3); Neutrophils Percent Auto 63.4 % (45-73); Platelet Count 228 X10*3/uL (160-400); Red Blood Count 4.87 X10*6/uL (4.60-5.80); Red Cell Distribution Width 12.9 % (11.0-16.0); White Blood Count 8.2 X10*3/uL (4.8-10.8)
[2022-08-13 11:35] LABS: Appearance Urine Turbid; Color Urine Yellow; Glucose Urine UA Negative (Negative); Leukocyte Esterase Urine Negative (Negative); Nitrite Urine Negative (Negative); PH 5.5 (5.0-9.0); Urine Blood Negative (Negative); Urine Ketones Trace mg/dL (Negative); Urine Protein Trace mg/dL (Neg-Trace)
[2022-08-13 11:38] LABS: Estimated Average Glucose 128 mg/dL; Hemoglobin A1c % 6.1 %
[2022-08-13 12:06] LABS: Creatinine Urine 224.02 mg/dL; Microalbum/Creatinine Ratio Ur 21.8 ug/mg cr
[2022-08-13 12:30] LABS: Alanine Aminotransferase 29 U/L (0-40); Albumin Level 4.2 g/dL (3.5-5.0); Alkaline Phosphatase 123 U/L (39-117); Anion Gap 15 (12-20); Aspartate Amino Transferase 23 U/L (5-37); Bilirubin Total 0.8 mg/dL (0.0-1.0); Blood Urea Nitrogen 20 mg/dL (9-16); Calcium 9.3 mg/dL (8.4-10.2); Carbon Dioxide 27 mmol/L (22-29); Chloride 99 mmol/L (96-108); Cholesterol 174 mg/dL; Estimated Glomerular Filt Rate > 60; Glucose Fasting 96 mg/dL (60-99); HDL Cholesterol 57 mg/dL; LDL Cholesterol Calculated 106 mg/dl; Potassium 4.5 mmol/L (3.3-5.1); Sodium 136 mmol/L (135-145); Triglycerides 59 mg/dL
[2022-08-13 12:34] LABS: TSH reflex Free T4 3.36 uIU/mL (0.32-4.0)
== END 2022-08-13 07:13 | disposition home or self-care (01) ==
LOC: HO.HMGCLDS 07:12
PROVIDERS: PCP Nurse Practitioner Family; Visit Provider Nurse Practitioner Family
DX: E11.69 Type 2 diabetes mellitus with other specified complication (principal); E66.9 Obesity, unspecified
CPT/HCPCS: 36415; 80053; 80061; 81003; 82043; 83036; 84443; 85025

== ENCOUNTER 2022-08-30 08:57 | Outpatient (REF) | payer OTHER, SELFPAY ==
--- NOTE | ~2022-08-30 | US_ITS ---
EXAMINATION: US ABDOMEN COMPLETE CLINICAL INFORMATION: Elevated alkaline phosphatase level. COMPARISON: None available. TECHNIQUE: Real-time imaging of the abdominal viscera. FINDINGS: PANCREAS: Normal. ABDOMINAL AORTA: The proximal, mid, and distal segments are normal in caliber. INFERIOR VENA CAVA: Visualized portions are normal. LIVER: The liver is enlarged measuring 20 cm. The liver contour is normal. There is diffuse increased liver parenchymal echogenicity, consistent with hepatic steatosis. No focal hepatic lesion. There is no intrahepatic biliary duct dilatation seen. GALLBLADDER: Normal. The gallbladder is physiologically distended without evidence of stones, sludge, polyps, wall thickening or pericholecystic fluid. COMMON BILE DUCT: Normal in caliber measuring 0.2 cm in diameter. RIGHT KIDNEY: 2.9 cm simple cyst in the midpole. 3.3 cm simple cyst in the lower pole. No imaging follow-up is recommended. No hydronephrosis or renal calculi. The kidney measures 12.3 cm in maximum dimension. LEFT KIDNEY: 1.8 cm questionably septated parapelvic cyst in the lower pole. 2.7 cm thinly septated parapelvic cyst in the upper pole. No imaging follow-up is recommended. No hydronephrosis or renal calculi. The kidney measures 14.0 cm in maximum dimension. SPLEEN: Normal. The spleen measures 10.5 cm in maximum dimension. FREE FLUID: None. US/US abdomen complete IMPRESSION: Enlarged steatotic liver. No biliary ductal dilatation.
== END 2022-08-30 08:58 | disposition home or self-care (01) ==
LOC: HO.HMGCX 08:57
PROVIDERS: PCP Nurse Practitioner Family; Visit Provider Nurse Practitioner Family
DX: R74.8 Abnormal levels of other serum enzymes (principal)
CPT/HCPCS: 76700

== ENCOUNTER 2023-05-21 08:03 | Outpatient (AMB) | payer BC, SELFPAY ==
[2023-05-21 08:15] VITALS: BP 130/80; PULSE 75; TEMP 36.6; O2SAT 98; BMI 39.0
--- NOTE | 2023-05-21 08:15 | AM.OFFWIN_ITS ---
Intake Vital Signs 05/21/23 08:15 Height 5 ft 11 in Weight 280 lb BMI 39.0 BP 130/80 Blood Pressure Location Lt brachial Position Sitting Pulse 75 Pulse Source Pulse Oximeter Temp 97.9 F Temp Source Temporal Artery Scan Pulse Oximetry (%) 98 Intake Visit Reasons: EST/chest congestion (lobby masked) Intake Note: pt is here for c/o chest congestion and requesting work note back dated from friday Patient Tobacco Use Status: Former Tobacco user Allergies No Known Allergies Allergy (Verified 05/21/23 08:17) Do you need a note to return to daycare/school/sports/work: Yes HPI HPI Comments History of Present Illness Details Patient is a 57yoM who presents to office with complaint of cough Missed work on Friday and needs a work note He said URI is slightly better. Was having cough and wheezing; worse at night Now just post nasal drip He denies fevers No wheeze or tightness now; none for 3-4 days No nasal running No ear pain or ST He previously took ibuprofen [facility] Medical History (Updated 05/21/23 @ 08:27 by Paulina Owusu PA-C) Diabetes mellitus type 2 in obese HTN (hypertension) Hyperkalemia Chronic GERD Tremor Carpal tunnel syndrome Surgical History (Updated 01/11/22 @ 08:35 by IVANIA Bentley) Status post correction of deviated nasal septum History of surgical removal of meniscus of knee History of vasectomy History of inguinal hernia repair Family History Father Breast cancer Mental health disorder Substance use disorder Mother Liver cancer Substance use disorder Brother No problems noted. Sister No problems noted. Sister No problems noted. Sister No problems noted. Social History Housing: Other Alcohol intake: current Alcohol intake frequency: a few times a week Patient Tobacco Use Status: Former Tobacco user e-Cigarette/Vaping Use: Never Used Current occupational status: employed Cognitive needs: No Hearing needs: No Vision needs: No Review of Systems Const Denies body aches, Denies chills, Denies fatigue and Denies fever(s) ENT Denies otalgia, Denies facial pain, Denies nasal discharge, Denies nose pain and Reports post nasal drip Card Denies chest pain and Denies dyspnea Resp Denies cough and Denies dyspnea GI Denies abdominal pain Endo Denies fatigue Physical Exam Vital Signs: Last Vital Signs Temp 97.9 F 05/21/23 08:15 Pulse 75 05/21/23 08:15 BP 130/80 05/21/23 08:15 Pulse Ox 98 05/21/23 08:15 BMI result Body Mass Index 39.0 General: Non-toxic, NAD. Speaking full sentences. Skin: Warm dry throughout Eye: EOMI HENT: Airway patent. Uvula midline. No pharyngeal erythema or edema. No CIGARETTE CATCHER. Bilateral canals clear. TM non-erythematous, non-bulging. No TM perforation or hemotympanum noted. Respiratory: CTA bilaterally. No wheezes, rales or rhonchi Cardiac: RRR. No murmur MSK: Full ROM extremities. Neurology: A/O. No aphasia or facial droop. Gait without abnormality Psych: Good mood and affect Assessment & Plan Assessment & Plan (1) Upper respiratory infection: Code(s): J06.9 - Acute upper respiratory infection, unspecified Qualifiers: URI type: unspecified viral URI Qualified Code(s): J06.9 - Acute upper respiratory infection, unspecified Plan: Patient seen and evaluated. Lungs CTA Symptoms improving an vitals stable All questions answered at time of discharge Coding Level of Care Code Est Pt Level 3 (20115) Diagnoses Viral upper respiratory tract infection J06.9 URI type: unspecified viral URI
== END 2023-05-21 08:47 | disposition home or self-care (01) ==
PROVIDERS: PCP Nurse Practitioner Family; Visit Provider Physician Assistant
DX: J06.9 Acute upper respiratory infection, unspecified (principal)
CPT/HCPCS: 99213

== ENCOUNTER 2023-07-01 08:04 | Outpatient (AMB) | payer BC, SELFPAY ==
[2023-07-01 08:12] VITALS: BP 142/90; PULSE 93; O2SAT 97; BMI 43.7
--- NOTE | 2023-07-01 08:12 | AM.OFFWIN_ITS ---
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 Patient states for the past 2 days he has exacerbated lower back pain. States that he stands on his feet and has to bend and twist for work. Denies any trauma to the area. Denies any tingling or numbness. States that he is getting some relief with ibuprofen. [facility] Medical History Diabetes mellitus type 2 in obese HTN (hypertension) Hyperkalemia Chronic GERD Tremor Carpal tunnel syndrome Surgical History Status post correction of deviated nasal septum History of surgical removal of meniscus of knee History of vasectomy History of inguinal hernia repair Family History Father Breast cancer Mental health disorder Substance use disorder Mother Liver cancer Substance use disorder Brother No problems noted. Sister No problems noted. Sister No problems noted. Sister No problems noted. Social History Housing: Other Alcohol intake: current Alcohol intake frequency: a few times a week Patient Tobacco Use Status: Former Tobacco user e-Cigarette/Vaping Use: Never Used Current occupational status: employed Cognitive needs: No Hearing needs: No Vision needs: No Review of Systems Const All systems reviewed & are unremarkable except as noted in HPI and below Musc Reports back pain (Lower back, paraspinal) Physical Exam Vital Signs: Last Vital Signs Pulse 93 07/01/23 08:12 BP 142/90 H 07/01/23 08:12 Pulse Ox 97 07/01/23 08:12 Oxygen Delivery Method Room Air 07/01/23 08:12 BMI result Body Mass Index 43.7 Const Other: Appearance: Alert.? Oriented X3.? No acute distress.? Head: Normocephalic, atraumatic, no step-offs or deformities Neck: Normal inspection.? Neck supple.? CVS: Normal heart rate and rhythm.? Pulses normal.? Respiratory: No respiratory distress.? Breath sounds normal.? Back: No midline tenderness, no C-spine tenderness, full range of motion, no CVA tenderness bilaterally. + paraspinal muscle tenderness. Neuro: Oriented X 3.? No motor deficit.? No sensory deficit. CN 2-12 intact Assessment & Plan Assessment & Plan (1) Lower back pain: Comment: Patient has paraspinal muscle tenderness, getting good relief with ibuprofen. Note tingling or numbness. Patient will be given note for work. Patient instructed to rest area utilize ice. Code(s): M54.50 - Low back pain, unspecified Qualifiers: Chronicity: chronic Back pain laterality: bilateral Sciatica presence: without sciatica Qualified Code(s): M54.50 - Low back pain, unspecified; G89.29 - Other chronic pain Plan: Follow-up with PCP. Coding Level of Care Code Est Pt Level 3 (65468) Diagnoses Chronic bilateral low back pain without sciatica M54.50; G89.29 Chronicity: chronic Back pain laterality: bilateral Sciatica presence: without sciatica Time Spent (min) 21
== END 2023-07-01 08:34 | disposition home or self-care (01) ==
PROVIDERS: PCP Nurse Practitioner Family; Visit Provider Nurse Practitioner Primary Care
DX: M54.50 Low back pain, unspecified (principal); G89.29 Other chronic pain
CPT/HCPCS: 99213

== ENCOUNTER 2023-09-01 15:23 | Outpatient (AMB) | payer BC, SELFPAY ==
--- NOTE | 2023-09-01 15:32 | A.OFFPC_ITS ---
Vital Signs 09/01/23 15:35 Height 5 ft 11 in Weight 299 lb BMI 41.7 BP 122/84 Blood Pressure Location Rt brachial Position Sitting Pulse 100 Pulse Source Pulse Oximeter Pulse Oximetry (%) 99 Oxygen Delivery Method Room Air Intake Visit Reasons: Med review Intake Note: Patient here to f/u diabetes Allergies No Known Allergies Allergy (Verified 07/01/23 08:26) Medication List - Last Reconciled 09/01/23 by RAULITO Reddy amlodipine 10 mg PO DAILY blood sugar diagnostic (FreeStyle Lite Strips) bid blood-glucose meter As directed lancets (FreeStyle Lancets) test blood sugar 1-2 times a day lisinopril 40 mg PO DAILY omeprazole 20 mg PO DAILY Tobacco use date assessed: 09/01/23 Dental Screening Dental Screen Date: 09/01/23 Did you have a dental visit in the last 12 months?: Yes Did you have a dental problem in the last 6 months where you did not have access to dental care?: No Was dental information given to patient?: Patient has dentist HPI Med review HPI Details Pt is a diabetic, on an MAT. A1C in office today is 6.1. Due for microalbumin. Denies polyuria, polydipsia, and neuropathy. Pt denies any signs and symptoms of hypoglycemia and does know how to correct it. Pt reports that his blood sugar today was 120. Due for eye exam, will refer. Due for PSA, will order. Denies dribbling with urination, weak stream, and frequent nocturia. [facility] Medical History Diabetes mellitus type 2 in obese HTN (hypertension) Hyperkalemia Chronic GERD Tremor Carpal tunnel syndrome Surgical History Status post correction of deviated nasal septum History of surgical removal of meniscus of knee History of vasectomy History of inguinal hernia repair Family History Father Breast cancer Mental health disorder Substance use disorder Mother Liver cancer Substance use disorder Brother No problems noted. Sister No problems noted. Sister No problems noted. Sister No problems noted. Social History Housing: Other Alcohol intake: current Alcohol intake frequency: a few times a week Patient Tobacco Use Status: Former Tobacco user e-Cigarette/Vaping Use: Never Used Current occupational status: employed Cognitive needs: No Hearing needs: No Vision needs: No Questionnaire PHQ-9 Over the last 2 weeks, how often have you been bothered by any of the following problems? 1. Little interest or pleasure in doing things: not at all 2. Feeling down, depressed, or hopeless: not at all 3. Trouble falling or staying asleep, or sleeping too much: not at all 4. Feeling tired or having little energy: not at all 5. Poor appetite or overeating: not at all 6. Feeling bad about yourself - or that you are a failure or have let yourself or your family down: not at all 7. Trouble concentrating on things, such as reading the newspaper or watching television: not at all 8. Moving or speaking so slowly that other people could have noticed. Or the opposite - being so fidgety or restless that you have been moving around a lot more than usual: not at all 9. Thoughts that you would be better off or of hurting yourself in some way: not at all Total score: 0 Depression Screening Interpretation: Negative Depression Screening Done: Yes 80759 - PHQ-9 Billing: Yes Source: Developed by Drs. Markos Jackson, Aubree Treviño, Ger Chavez and colleagues, with an educational clau from [employer]. Thrive Questionnaire Date Thrive assessed: 09/01/23 I am a: Patient What is your living situation today?: I have a steady place to live Within the past 12 months, did the food you bought not last and you didn't have the money to get more?: Never true Within the past 12 months, did you worry whether your food would run out before you got money to buy more?: Never true Do you have trouble paying for medicines?: No Do you have trouble getting transportation to medical appointments?: No Do you have trouble paying your heating and electricity bill?: No Do you have trouble taking care of your child, family member or friend?: No Do you have trouble with day-to-day activities such as bathing, preparing meals, shopping, managing finances, etc.?: No Are you currently unemployed and looking for a job?: No Are you interested in more education?: No Currently or been in a relationship where the following occur: I choose not to answer this question THRIVE Score: 0 AUDIT C Alcohol Use Questionnaire (AUDIT-C) 1. How often do you have a drink containing alcohol?: Monthly or less 2. How many drinks containing alcohol do you have on a typical day when you are drinking?: 1 or 2 3. How often do you have six or more drinks on one occasion?: Never Total Score: 1 Score Reviewed/Action Taken: No MARTI-7 AMB Questionnaire MARTI-7 Date MARTI - 7 assessed: 09/01/23 Feeling nervous, anxious, or on edge: 0 = Not at all Not being able to stop or control worryin = Not at all Worrying too much about different things: 0 = Not at all Trouble relaxin = Not at all Being so restless that it is hard to sit still: 0 = Not at all Becoming easily annoyed or irritable: 0 = Not at all Feeling afraid as if something awful might happen: 0 = Not at all Total MARTI-7 score (0-4 normal; 5-9 mild; 10-14 moderate; 15-21 severe): 0 Source: Developed by Drs. Markos Jackson, Aubree Treviño, Ger Chavez and colleagues, with an educational clau from [employer]. MARIT-7 Assessment Billing MARTI-7 Assessment Tool: MARTI-7 Assessment 15805 Review of Systems Const Reports as per HPI Physical exam (Primary Care) Vital Signs: Last Vital Signs Pulse 100 09/01/23 15:35 BP 122/84 09/01/23 15:35 Pulse Ox 99 09/01/23 15:35 Oxygen Delivery Method Room Air 09/01/23 15:35 BMI result Body Mass Index 41.7 Tobacco/Smoking Status: Tobacco use Status Tobacco use date assessed 09/01/23 09/01/23 15:38 Patient Tobacco Use Status Former Tobacco user 09/01/23 15:33 e-Cigarette/Vaping Use Never Used 09/01/23 15:33 PHQ-9: PHQ-9 Score PHQ-9: Total score 0 09/01/23 16:14 Depression Screening Interpretation: Negative Thrive Assessment: Date of Thrive Assessment Date Thrive assessed 09/01/23 09/01/23 16:14 Currently or been in a relationship where the following occur: I choose not to answer this question Const General: cooperative Nutritional Appearance: obese morbidly obese Orientation/consciousness: patient oriented x3 Resp Effort & Inspection: normal respiratory effort Auscultation: clear to auscultation bilaterally Cardio Rate: regular rate Rhythm: regular rhythm Heart sounds: S1 normal heart sound present and S2 normal heart sound present Neuro General: patient oriented x3 Extrem Other: bilat feet: + sensation with use of monofilament, feet intact, right foot medial aspect of 1st toe with callus formation, also noted to left foot medial aspect of 1st toe, onychomycosis noted bilat Psych Appearance: grossly normal Mental Status: mental status grossly normal Speech and movement: Normal speech and movement present Affect: normal affect Attitude: cooperative Thought process: Normal thought process present Thought content: Normal thought content present Insight: Good insight present (Psych) Judgement: Good judgement present (Psych) Results AMB Hemoglobin A1c AMB Hemoglobin A1c 6.1 % Last Edit by DOMENIC Lara on 09/01/23 16 :15 Results Reviewed Results Reviewed: Laboratory Last Values Hgb A1c (Clinic) 6.1 % (4.0-6.0) H 09/01/23 16:14 Assessment and Plan Assessment & Plan (1) Diabetes mellitus type 2 in obese: Code(s): E11.69 - Type 2 diabetes mellitus with other specified complication; E66.9 - Obesity, unspecified Plan: Labs ordered (2) Screening PSA (prostate specific antigen): Code(s): Z12.5 - Encounter for screening for malignant neoplasm of prostate Plan: PSA ordered Plan The patient agreed to the use of a medical care manager for this encounter. Scribed for RAULITO Morris by arsh Gonzales scribe, on 09/01/2023 at 15:50 EST. Orders: Orders Complete Blood Count Auto Diff Today E11.69 - Type 2 diabetes mellitus with oth er specified complication, E66.9 - Obesity, unspecified Comprehensive [place]. Panel Fast Today E11.69 - Type 2 diabetes mellitus with other specified complication, E66.9 - Obesity, unspecified TSH reflex Free T4 Today E11.69 - Type 2 diabetes mellitus with other specified complication, E66.9 - Obesity, unspecified UA CC w/rflx Micro + Cult Today E11. - Type 2 diabetes mellitus with other specified complication, E66.9 - Obesity, unspecified Lipid Panel Today E11. - Type 2 diabetes mellitus with other specified complication, E66.9 - Obesity, unspecified Microalbumin, Random (w Creat) Today E11.69 - Type 2 diabetes mellitus with other specified complication, E66.9 - Obesity, unspecified Prostate Specific Antigen Scr Today Z12.5 - Encounter for screening for malignant neoplasm of prostate AMB Hemoglobin A1c Today Z13.9 - Encounter for screening, unspecified Referrals Ophthalmology Referral E11. - Type 2 diabetes mellitus with other specified complication, E66.9 - Obesity, unspecified Medications: New atorvastatin 20 mg PO BEDTIME 90 days 90 tabs 2RF compression socks, x-large daily 2 ea 1RF swelling Coding Level of Care Code Est Pt Level 3 (06257) Diagnoses Diabetes mellitus type 2 in obese E11.; E66.9 Screening PSA (prostate specific antigen) Z12.5 Additional Codes MARTI-7 Assessment Billing - MARTI-7 Assessment Tool: MARTI-7 Assessment 81711 ([id number])
[2023-09-01 15:35] VITALS: BP 122/84; PULSE 100; O2SAT 99; BMI 41.7
== END 2023-09-01 16:06 | disposition home or self-care (01) ==
PROVIDERS: PCP Nurse Practitioner Family; Visit Provider Nurse Practitioner Family
DX: E11.69 Type 2 diabetes mellitus with other specified complication (principal); E66.9 Obesity, unspecified; Z12.5 Encounter for screening for malignant neoplasm of prostate; Z68.41 Body mass index [BMI] 40.0-44.9, adult
CPT/HCPCS: 83036; 99213

== ENCOUNTER 2023-10-28 07:14 | Outpatient (REF) | payer BC, SELFPAY ==
[2023-10-28 10:12] LABS: MANUAL DIFF FLAG NO
[2023-10-28 10:20] LABS: Appearance Urine Clear; Color Urine Yellow; Glucose Urine UA Negative (Negative); Leukocyte Esterase Urine Negative (Negative); Nitrite Urine Negative (Negative); Urine Blood Negative (Negative); Urine Ketones Negative (Negative); Urine Protein Negative (Neg-Trace)
[2023-10-28 10:25] LABS: Basophils Absolute Auto 0.1 X10*3/uL (0.0-0.2); Eosinophils Absolute Auto 0.1 X10*3/uL (0.0-0.4); Eosinophils Percent Auto 1.2 % (0-4); Hematocrit 41.8 % (42.0-52.0); Hemoglobin 14.2 g/dl (14.0-18.0); Imm Gran Abs Auto 0.14 X10*3/uL (0.00-0.03); Imm Gran Pct Auto 1.7 % (0.0-0.4); Lymphocytes Absolute Auto 1.6 X10*3/uL (1.2-4.9); Lymphocytes Percent Auto 19.7 % (20-40); Mean Corpuscular Hemoglobin 31.2 pg (27.0-33.0); Mean Corpuscular Volume 91.9 fL (80.0-98.0); Mean Platelet Volume 9.9 fL (9.4-12.4); Monocytes Percent Auto 11.8 % (2-11); Neutrophils Absolute Auto 5.3 x10*3/uL (2.0-8.3); Neutrophils Percent Auto 64.6 % (45-73); Platelet Count 232 X10*3/uL (160-400); Red Blood Count 4.55 X10*6/uL (4.60-5.80); Red Cell Distribution Width 12.9 % (11.0-16.0); White Blood Count 8.2 X10*3/uL (4.8-10.8)
[2023-10-28 10:48] LABS: Alanine Aminotransferase 30 U/L (0-40); Albumin Level 4.1 g/dL (3.5-5.0); Alkaline Phosphatase 104 U/L (39-117); Anion Gap 14 (12-20); Aspartate Amino Transferase 23 U/L (5-37); Bilirubin Total 0.7 mg/dL (0.0-1.0); Blood Urea Nitrogen 17 mg/dL (9-16); Calcium 9.3 mg/dL (8.4-10.2); Carbon Dioxide 25 mmol/L (22-29); Chloride 98 mmol/L (96-108); Cholesterol 117 mg/dL (<200); Estimated Glomerular Filt Rate > 60; Glucose Fasting 99 mg/dL (60-99); HDL Cholesterol 56 mg/dL (>40); LDL Cholesterol Calculated 53 mg/dL (<100); Potassium 4.3 mmol/L (3.3-5.1); Sodium 133 mmol/L (135-145); Total Protein 6.9 g/dL (6.5-8.0); Triglycerides 44 mg/dL (<150)
[2023-10-28 10:58] LABS: Creatinine Urine 64.15 mg/dL; Microalbum/Creatinine Ratio Ur 9.3 ug/mg cr (<30)
[2023-10-28 11:06] LABS: TSH reflex Free T4 2.24 uIU/mL (0.32-4.0)
== END 2023-10-28 07:15 | disposition home or self-care (01) ==
LOC: HO.HMGCLDS 07:14
PROVIDERS: PCP Nurse Practitioner Family; Visit Provider Nurse Practitioner Family
DX: E11.69 Type 2 diabetes mellitus with other specified complication (principal); E66.9 Obesity, unspecified; Z12.5 Encounter for screening for malignant neoplasm of prostate
CPT/HCPCS: 36415; 80053; 80061; 81003; 82043; 82570; 84153; 84443; 85025

== ENCOUNTER 2024-07-13 07:51 | Outpatient (AMB) | payer BC, SELFPAY ==
--- NOTE | 2024-07-13 07:53 | A.OFFPC_ITS ---
Vital Signs 07/13/24 07:56 Height 5 ft 11 in Weight 320 lb BMI 44.6 BP 110/88 Blood Pressure Location Lt brachial Position Sitting Respiration 18 Pulse 96 Pulse Source Pulse Oximeter Temp 98.6 F Temp Source Oral Pulse Oximetry (%) 94 Oxygen Delivery Method Room Air Intake Visit Reasons: PE Intake Note: Pt is here today for his PE Director Of Hemophilia Required: No Accompanied by: Self / Same As Patient Allergies No Known Allergies Allergy (Verified 07/13/24 08:20) Medication List - Last Reconciled 07/13/24 by Bright Alfaro, [facility]- amlodipine 10 mg PO DAILY atorvastatin 20 mg PO BEDTIME 90 days blood sugar diagnostic (FreeStyle Lite Strips) bid blood-glucose meter As directed compression socks, x-large daily lancets (FreeStyle Lancets) test blood sugar 1-2 times a day lisinopril 40 mg PO DAILY omeprazole 20 mg PO DAILY Tobacco use date assessed: 07/13/24 Dental Screening Dental Screen Date: 07/13/24 Did you have a dental visit in the last 12 months?: Yes Did you have a dental problem in the last 6 months where you did not have access to dental care?: No Was dental information given to patient?: Patient has dentist HPI PE HPI Details History of Present Illness The patient is a 58-year-old male presenting with the primary reasons of physical examination and diabetes management. He has a history of Type 2 Diabetes Mellitus, for which his recent A1c level measured at 6.9%, indicating a need for continuous monitoring and treatment adjustment. He is also dealing with morbid obesity, which is a contributing factor to his health risks. The patient notably denies symptoms of neuropathy, polyuria, polydipsia, fevers, chills, and chest pain. However, he experiences shortness of breath, especially with exertion, which has been noted as intermittent without accompanying wheezing. His lung sounds are slightly diminished bilaterally, likely due to his body habitus, and trace edema is present in the bilateral lower extremities. He reports that his previous eye examinations are not current, which is essential given his diabetic condition. His physical condition and associated symptoms outline the necessity for a comprehensive treatment and management plan addressing both diabetes control and weight management, alongside evaluations like echocardiograms for his intermittent breathing issues. Health Maintenance - Encouraged weight loss and healthier l ifestyle choices - Planned starting a GLP-1 agonist for d iabetes and obesity management - Eye examination referral for diabetic retinopathy screening - Recommended laboratory testing to be c ompleted in the upcoming months - Scheduling a repeat echocardiogram for comparison with previous results - Planning a chest x-ray for further antolin luation, echo, BNP, stress test Social History Review of Systems - Respiratory: Reports intermittent shor tness of breath, particularly with exertion; Denies wheezing. - Neurological: Denies neuropathy. - Genitourinary: Denies polyuria. - Endocrine: Denies polydipsia. - General: Denies fevers, chills. Physical Exam General: Cooperative, healthy appearing, comfortable, no acute distress and well developed. Patient is morbidly obese. Orientation: Patient oriented x3 Limitations: No limitations Head: Normal to inspection Ears: Hearing grossly normal bilaterally Nose: Normal external nose present Face and sinus: Normal facial exam Eyes: Appearance normal, both eyes and all related structures. Eye exam not up to date. Neck: Normal visual inspection and Yes full ROM. No carotid bruits auscultated. Respiratory: Normal respiratory effort and able to speak in complete sentences. Clear to auscultation bilaterally, slightly diminished bilaterally, likely due to body habitus. Cardiovascular: Regular rate and rhythm. Normal S1 and S2 GI: Normal to inspection. Soft to palpation and nontender Skin: No rashes or lesions noted, + sensation to feet with monofilament, onychomycosis noted bilat Neuro: Patient oriented x3 Extremities: Normal to inspection. Trace edema to bilateral lower extremities. Results - Labs: Hemoglobin A1c is 6.9%. Plan GLP-1 agonist in managing the patient's Type 2 Diabetes Mellitus and contribute to his desired weight loss goals. An updated echocardiogram is planned to evaluate any changes correlating with exertional shortness of breath, and a chest x-ray will be performed for comprehensive assessment. Further, I emphasized the significance of regular exercise and proper diet, scheduling a follow-up eye exam to ensure diabetic retinopathy does not go unchecked. Consistent laboratory testing in upcoming months will be essential in overseeing his diabetes control and overall health progression. Worsening symptoms must go to the ER. colon screen order placed, he reports his last appt was cancelled, will reach out to GI about appt. Discussion Notes I discussed the proposed initiation of a GLP-1 agonist with the patient, focusing on Mounjaro as an effective means to manage his diabetes while concurrently aiding in weight loss. We reviewed the potential benefits such as improved glycemic control and potential side effects, ensuring he understands the importance of lifestyle changes, including diet and exercise, in conjunction with pharmacotherapy. As part of ongoing diabetes care, I outlined the necessity to update his routine eye examination due to the potential for diabetic eye disease and made arrangements for appropriate microbiology labs in the upcoming months. For his intermittent dyspnea post-exertion, we agreed on performing a repeat echocardiogram and obtaining a chest x-ray, stress test, labs. The importance of consistent health monitoring with further evaluation and follow- ups was emphasized, including timely referral for eye care given his condition. Patient Instructions - Begin Mounjaro 2.5 mg as prescribed. - Follow a calorie-controlled diet and e ngage in regular physical activity to promote weight loss. - Schedule and attend the referred eye e xamination promptly. - Complete laboratory tests as instructe d over the next few months for monitoring. - Arrange for a chest x-ray and echocard iogram as discussed. - Monitor for any change or exacerbation of symptoms and seek medical advice as needed. - Follow up for routine check-ups and elmo mora appointments timely. [facility] Medical History Diabetes mellitus type 2 in obese HTN (hypertension) Hyperkalemia Chronic GERD Tremor Carpal tunnel syndrome Surgical History Status post correction of deviated nasal septum History of surgical removal of meniscus of knee History of vasectomy History of inguinal hernia repair Family History Father Breast cancer Mental health disorder Substance use disorder Mother Liver cancer Substance use disorder Brother No problems noted. Sister No problems noted. Sister No problems noted. Sister No problems noted. Social History Housing: Other Alcohol intake: current Alcohol intake frequency: a few times a week Patient Tobacco Use Status: Former Tobacco user e-Cigarette/Vaping Use: Never Used service: No Current occupational status: employed Current occupational exposures/hazards: No Cognitive needs: No Hearing needs: No Vision needs: No Questionnaire PHQ-9 Over the last 2 weeks, how often have you been bothered by any of the following problems? 1. Little interest or pleasure in doing things: not at all 2. Feeling down, depressed, or hopeless: not at all 3. Trouble falling or staying asleep, or sleeping too much: not at all 4. Feeling tired or having little energy: not at all 5. Poor appetite or overeating: not at all 6. Feeling bad about yourself - or that you are a failure or have let yourself or your family down: not at all 7. Trouble concentrating on things, such as reading the newspaper or watching television: not at all 8. Moving or speaking so slowly that other people could have noticed. Or the opposite - being so fidgety or restless that you have been moving around a lot more than usual: not at all 9. Thoughts that you would be better off or of hurting yourself in some way: not at all Total score: 0 Depression Screening Interpretation: Negative Depression Screening Done: Yes 02993 - PHQ-9 Billing: Yes Source: Developed by Drs. Markos Jackson, Aubree Treviño, Ger Chavez and colleagues, with an educational clau from [employer]. Thrive Questionnaire Date Thrive assessed: 07/13/24 I am a: Patient What is your living situation today?: I have a steady place to live Within the past 12 months, did the food you bought not last and you didn't have the money to get more?: Often true Within the past 12 months, did you worry whether your food would run out before you got money to buy more?: Often true Do you have trouble paying for medicines?: No Do you have trouble getting transportation to medical appointments?: No Do you have trouble paying your heating and electricity bill?: No Do you have trouble taking care of your child, family member or friend?: No Do you have trouble with day-to-day activities such as bathing, preparing meals, shopping, managing finances, etc.?: No Are you currently unemployed and looking for a job?: No Are you interested in more education?: No Please select the resources that you would like help with: None Currently or been in a relationship where the following occur: I choose not to answer THRIVE Score: 2 AUDIT C Alcohol Use Questionnaire (AUDIT-C) 1. How often do you have a drink containing alcohol?: 2-4 times a month 2. How many drinks containing alcohol do you have on a typical day when you are drinking?: 1 or 2 3. How often do you have six or more drinks on one occasion?: Monthly Total Score: 4 Score Reviewed/Action Taken: Yes MARTI-7 AMB Questionnaire MARTI-7 Date MARTI - 7 assessed: 07/13/24 Feeling nervous, anxious, or on edge: 0 = Not at all Not being able to stop or control worryin = Not at all Worrying too much about different things: 0 = Not at all Trouble relaxin = Not at all Being so restless that it is hard to sit still: 0 = Not at all Becoming easily annoyed or irritable: 0 = Not at all Feeling afraid as if something awful might happen: 0 = Not at all Total MARTI-7 score (0-4 normal; 5-9 mild; 10-14 moderate; 15-21 severe): 0 Source: Developed by Drs. Markos Jackson, Aubree Treviño, Ger Chavez and colleagues, with an educational clau from [employer]. MARTI-7 Assessment Billing MARTI-7 Assessment Tool: MARTI-7 Assessment 20198 Physical exam (Primary Care) Vital Signs: Last Vital Signs Temp 98.6 F 07/13/24 07:56 Pulse 96 07/13/24 07:56 Resp 18 07/13/24 07:56 BP 110/88 07/13/24 07:56 Pulse Ox 94 07/13/24 07:56 Oxygen Delivery Method Room Air 07/13/24 07:56 BMI result Body Mass Index 44.6 Tobacco/Smoking Status: Tobacco use Status Tobacco use date assessed 07/13/24 07/13/24 08:01 Patient Tobacco Use Status Former Tobacco user 07/13/24 07:55 e-Cigarette/Vaping Use Never Used 07/13/24 07:55 PHQ-9: PHQ-9 Score PHQ-9: Total score 0 07/13/24 08:21 Depression Screening Interpretation: Negative Thrive Assessment: Date of Thrive Assessment Date Thrive assessed 07/13/24 07/13/24 08:01 Currently or been in a relationship where the following occur: I choose not to answer Coding Level of Care Code Est Pt Prev Care 40-64y(00221) Diagnoses Physical exam Z00.00 Diabetes mellitus type 2 in obese E11.69; E66.9 Screening PSA (prostate specific antigen) Z12.5 SOB (shortness of breath) R06.02 Additional Codes MARTI-7 Assessment Billing - MARTI-7 Assessment Tool: MARTI-7 Assessment 69455 ([id number]) PHQ-9 - 35202 - PHQ-9 Billing: Yes ([id number]) Assessment & Plan Assessment & Plan (1) Physical exam: Code(s): Z00.00 - Encounter for general adult medical examination without abnormal findings Category: Medical (2) Diabetes mellitus type 2 in obese: Code(s): E11.69 - Type 2 diabetes mellitus with other specified complication; E66.9 - Obesity, unspecified Category: Medical (3) Screening PSA (prostate specific antigen): Code(s): Z12.5 - Encounter for screening for malignant neoplasm of prostate Category: Medical (4) SOB (shortness of breath): Code(s): R06.02 - Shortness of breath Category: Medical Plan . Orders: Orders Comprehensive [place]. Panel Fast Today E11.69 - Type 2 diabetes mellitus with other specified complication, E66.9 - Obesity, unspecified, Z00.00 - Encounter for general adult medical examination without abnormal findings TSH reflex Free T4 Today E11.69 - Type 2 diabetes mellitus with other specified complication, E66.9 - Obesity, unspecified, Z00.00 - Encounter for general adult medical examination without abnormal findings Lipid Panel Today E11.69 - Type 2 diabetes mellitus with other specified compl ication, E66.9 - Obesity, unspecified, Z00.00 - Encounter for general adult medical examination without abnormal findings AMB EKG-In Office Today R06.02 - Shortness of breath NM cardiolite stress test Today R06.02 - Shortness of breath B Type Natriuretic Peptide Today R06.02 - Shortness of breath XR chest 2V Today R06.02 - Shortness of breath Complete Blood Count Auto Diff Today E11.69 - Type 2 diabetes mellitus with other specified complication, E66.9 - Obesity, unspecified, Z00.00 - Encounter for general adult medical examination without abnormal findings UA CC w/rflx Micro + Cult Today E11.69 - Type 2 diabetes mellitus with other specified complication, E66.9 - Obesity, unspecified, Z00.00 - Encounter for general adult medical examination without abnormal findings Microalbumin, Random (w Creat) Today E11.69 - Type 2 diabetes mellitus with other specified complication, E66.9 - Obesity, unspecified Prostate Specific Antigen Scr Today Z12.5 - Encounter for screening for malignant neoplasm of prostate CA stress test Today R06.02 - Shortness of breath CA echo transthoracic complete Today R06.02 - Shortness of breath Referrals Ophthalmology Referral E11.69 - Type 2 diabetes mellitus with other specified complication, E66.9 - Obesity, unspecified Medications: New tirzepatide (Mounjaro) for 4 weeks 2.5 mg (0.5 mL) subcut QWEEK 2 mL 0RF
[2024-07-13 07:56] VITALS: BP 110/88; PULSE 96; RESP 18; TEMP 37; O2SAT 94; BMI 44.6
== END 2024-07-13 09:21 | disposition home or self-care (01) ==
LOC: HO.HMCC 07:52
PROVIDERS: PCP Nurse Practitioner Family; Visit Provider Nurse Practitioner Family
DX: Z00.00 Encounter for general adult medical examination without abnormal findings (principal); E11.69 Type 2 diabetes mellitus with other specified complication; E66.9 Obesity, unspecified; Z68.41 Body mass index [BMI] 40.0-44.9, adult; Z12.5 Encounter for screening for malignant neoplasm of prostate; R06.02 Shortness of breath; Z23 Encounter for immunization

== ENCOUNTER 2024-07-13 07:51 | Outpatient (REF) | payer BC, SELFPAY ==
--- NOTE | ~2024-07-13 | XR_ITS ---
EXAMINATION: XR CHEST 2 VIEWS HISTORY: R06.02 - Shortness of breath COMPARISON: Comparison is made with the prior examination dated 05/09/2021. FINDINGS: PA and lateral views of the chest are submitted. There is linear subsegmental atelectasis versus scarring at the left lung base. The lungs are otherwise clear. There is no pleural effusion, pneumothorax, or pulmonary vascular congestion. The heart is normal in size. The aorta is tortuous. There is degenerative disc disease of the spine. XR/XR chest 2V IMPRESSION: Bibasilar subsegmental atelectasis versus scarring. Electronically signed by: Markos Hankins MD 07/13/2024 01:47 PM EDT RP
== END 2024-07-13 07:52 | disposition home or self-care (01) ==
LOC: HO.HMGCX 07:51
PROVIDERS: PCP Nurse Practitioner Family; Visit Provider Nurse Practitioner Family
DX: Z00.00 Encounter for general adult medical examination without abnormal findings (principal); Z23 Encounter for immunization; E11.69 Type 2 diabetes mellitus with other specified complication; E66.9 Obesity, unspecified; Z68.41 Body mass index [BMI] 40.0-44.9, adult; R06.02 Shortness of breath
CPT/HCPCS: 71046; 83036; 90471; 90677; 93005; 96127

== ENCOUNTER → 2024-07-13 09:12 | Outpatient (BNV) | payer BC, SELFPAY | PROVIDERS: PCP Nurse Practitioner Family; Visit Provider Radiology Diagnostic Radiology | DX: J98.11 Atelectasis (principal) | CPT/HCPCS: 71046 ==

== ENCOUNTER 2024-08-30 07:45 | Outpatient (REF) | payer BC, SELFPAY ==
--- NOTE | ~2024-08-30 | CT_ITS ---
EXAMINATION: CT CHEST WITHOUT CONTRAST CLINICAL INFORMATION: Shortness of breath COMPARISON: No prior CT chest. Correlated to x-ray dated July 13, 2024. TECHNIQUE: Multidetector volumetric CT imaging of the chest was done. Axial MIP volume rendering provided. Sagittal and coronal reformatted images were obtained. This CT examination was performed using dose optimization techniques as appropriate, variously including the following: *Automated exposure control *Adjustment of mA and/or kV according to patient size (this includes techniques or standardized protocols for targeted exams where dose is matched to indication/reason for exam; i.e. extremities or head) *Use of iterative reconstruction technique. DLP: 354 mGy centimeter. FINDINGS: FLUE CLEANER: Patient's large body habitus. S-shaped curvature of the thoracic spine. LUNGS: No gross consolidation. No bronchiectasis. No honeycombing. Respiratory airways is grossly patent. No gross hyperinflation. No gross pulmonary nodules.. MEDIASTINUM: No lymphadenopathy. No aneurysm, thoracic aorta. No gross pericardial effusion. CORONARY ARTERY CALCIFICATION: No calcifications. PLEURA: No pleural effusion. No pneumothorax. AXILLA: No lymphadenopathy. UPPER ABDOMEN: Prominent low density structures in the corticomedullary junction/parapelvic region both kidneys and small less than 1 cm exophytic low density in the upper pole right kidney. OSSEOUS STRUCTURES: Multilevel marginal osteophyte formation and endplate sclerosis and decreased intervertebral disc height in the mid segment of the thoracic spine. Dextroconvex rotoscoliosis apex at T7-8. No acute cortical disruption. No gross malalignment. No gross lytic or blastic lesions. CT/CT chest wo IV con IMPRESSION: No acute airspace disease. Multilevel spondylosis and scoliosis, mid thoracic spine. Probable renal cysts. Fleischner guidelines were followed. Electronically signed by: Chaim Carl MD 08/30/2024 08:58 AM EDT
== END 2024-08-30 07:46 | disposition home or self-care (01) ==
LOC: HO.CT 07:45
PROVIDERS: PCP Nurse Practitioner Family; Visit Provider Nurse Practitioner Family
DX: R06.02 Shortness of breath (principal); R93.89 Abnormal findings on diagnostic imaging of other specified body structures
CPT/HCPCS: 71250

== ENCOUNTER → 2024-08-30 07:46 | Outpatient (BNV) | payer BC, SELFPAY | PROVIDERS: PCP Nurse Practitioner Family; Visit Provider Radiology Diagnostic Radiology | DX: R06.02 Shortness of breath (principal) | CPT/HCPCS: 71250 ==

== ENCOUNTER 2024-10-11 07:38 | Outpatient (REF) | payer BC, SELFPAY ==
[2024-10-11 10:04] LABS: MANUAL DIFF FLAG NO
[2024-10-11 10:05] LABS: B Type Natriuretic Peptide < 10 pg/mL (<100)
[2024-10-11 10:20] LABS: Appearance Urine Clear; Color Urine Yellow; Glucose Urine UA Negative (Negative); Leukocyte Esterase Urine Negative (Negative); Nitrite Urine Negative (Negative); Specific Gravity - Urine 1.015 (1.005-1.025); Urine Blood Negative (Negative); Urine Ketones Negative (Negative); Urine Protein Trace mg/dL (Neg-Trace)
[2024-10-11 10:30] LABS: Basophils Absolute Auto 0.1 X10*3/uL (0.0-0.2); Basophils Percent Auto 0.9 % (0-2); Eosinophils Absolute Auto 0.2 X10*3/uL (0.0-0.4); Eosinophils Percent Auto 1.9 % (0-4); Hemoglobin 15.9 g/dl (14.0-18.0); Imm Gran Abs Auto 0.23 X10*3/uL (0.00-0.03); Imm Gran Pct Auto 2.2 % (0.0-0.4); Lymphocytes Absolute Auto 1.7 X10*3/uL (1.2-4.9); Lymphocytes Percent Auto 16.4 % (20-40); Mean Corpuscular HGB Conc 33.1 g/dl (31.0-36.0); Mean Corpuscular Hemoglobin 30.6 pg (27.0-33.0); Mean Corpuscular Volume 92.5 fL (80.0-98.0); Monocytes Percent Auto 9.7 % (2-11); Neutrophils Absolute Auto 7.3 x10*3/uL (2.0-8.3); Neutrophils Percent Auto 68.9 % (45-73); Platelet Count 240 X10*3/uL (160-400); Red Blood Count 5.19 X10*6/uL (4.60-5.80); Red Cell Distribution Width 13.1 % (11.0-16.0); White Blood Count 10.5 X10*3/uL (4.8-10.8)
[2024-10-11 11:01] LABS: Alanine Aminotransferase 49 U/L (0-40); Albumin Level 4.4 g/dL (3.5-5.0); Alkaline Phosphatase 128 U/L (39-117); Anion Gap 12 (12-20); Aspartate Amino Transferase 34 U/L (5-37); Bilirubin Total 0.6 mg/dL (0.0-1.0); Blood Urea Nitrogen 19 mg/dL (9-16); Calcium 9.6 mg/dL (8.4-10.2); Carbon Dioxide 32 mmol/L (22-29); Chloride 97 mmol/L (96-108); Cholesterol 133 mg/dL (<200); Estimated Glomerular Filt Rate > 60; Glucose Fasting 126 mg/dL (60-99); HDL Cholesterol 55 mg/dL (>40); LDL Cholesterol Calculated 62 mg/dL (<100); Potassium 3.8 mmol/L (3.3-5.1); Sodium 137 mmol/L (135-145); Total Protein 7.5 g/dL (6.5-8.0); Triglycerides 84 mg/dL (<150)
[2024-10-11 11:02] LABS: TSH reflex Free T4 2.79 uIU/mL (0.32-4.0)
[2024-10-11 11:19] LABS: Creatinine Urine 97.38 mg/dL; Microalbum/Creatinine Ratio Ur 68.8 ug/mg cr (<30)
== END 2024-10-11 07:39 | disposition home or self-care (01) ==
LOC: HO.HMGCLDS 07:38
PROVIDERS: PCP Nurse Practitioner Family; Visit Provider Nurse Practitioner Family
DX: Z00.00 Encounter for general adult medical examination without abnormal findings (principal); Z12.5 Encounter for screening for malignant neoplasm of prostate; E11.69 Type 2 diabetes mellitus with other specified complication; E66.9 Obesity, unspecified; R06.02 Shortness of breath
CPT/HCPCS: 36415; 80053; 80061; 81003; 82043; 82570; 83880; 84153; 84443; 85025

== ENCOUNTER 2025-02-10 11:03 | Outpatient (AMB) | payer BC, SELFPAY ==
--- NOTE | 2025-02-10 11:07 | HO.NEPHOV ---
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 Accompanied by: Self / Same As Patient Allergies No Known Allergies Allergy (Verified 02/10/25 11:23) Medication List - Last Reconciled 02/10/25 by Florian Brennan MD amlodipine 10 mg PO DAILY atorvastatin 20 mg PO BEDTIME 90 days blood sugar diagnostic (FreeStyle Lite Strips) bid blood-glucose meter As directed compression socks, x-large daily lancets (FreeStyle Lancets) test blood sugar 1-2 times a day lisinopril 40 mg PO DAILY Mounjaro (tirzepatide) 7.5 mg (0.5 mL) subcut QWEEK NS omeprazole 20 mg PO DAILY PRN HPI Comments Details: The patient is a 59-year-old male presenting with microalbuminuria. h.o diabetes management, hypertension diagnosed approximately two years ago, managed with lisinopril and amlodipine. Blood pressure readings have been variable, with a recent measurement of 140/98 mmHg, potentially influenced by lack of sleep due to working night shifts. Type 2 diabetes mellitus was diagnosed around the same time as hypertension, following an incident of hyperglycemia requiring hospital admission. The patient has since modified his diet, reducing sugar intake and incorporating healthier options, and is currently on Mounjaro for glycemic control. The patient is also addressing obesity through increased physical activity and dietary changes, although no significant weight loss has been reported yet. He has recently started exercising with weights and is attempting to improve his diet by eating more fruits and lean proteins. Past medical history includes meniscus surgery, hernia repair, and nasal surgery. He reports a history of bronchitis, which resolved after a prolonged cough. [facility] Medical History Diabetes mellitus type 2 in obese HTN (hypertension) Hyperkalemia Chronic GERD Tremor Carpal tunnel syndrome Surgical History Status post correction of deviated nasal septum History of surgical removal of meniscus of knee History of vasectomy History of inguinal hernia repair Family History Father Breast cancer Mental health disorder Substance use disorder Mother Liver cancer Substance use disorder Brother No problems noted. Sister No problems noted. Sister No problems noted. Sister No problems noted. Social History Housing: Other Alcohol intake: current Alcohol intake frequency: a few times a week Patient Tobacco Use Status: Former Tobacco user e-Cigarette/Vaping Use: Never Used service: No Current occupational status: employed Current occupational exposures/hazards: No Cognitive needs: No Hearing needs: No Vision needs: No Review of Systems Const Denies fever(s) and Denies weight loss Card Denies chest pain Resp Denies cough and Denies hemoptysis GI Denies abdominal pain, Denies diarrhea and Denies nausea Musc Denies back pain Neuro Denies focal weakness Physical Exam Vital Signs: Last Vital Signs Pulse 96 02/10/25 11:21 BP 140/98 H 02/10/25 11:21 Pulse Ox 99 02/10/25 11:21 Oxygen Delivery Method Room Air 02/10/25 11:21 BMI result Body Mass Index 43.5 Comfortable Neck supple no JVD. Lungs entry equal no rales. Heart S1-S2 heard no gallop or rub. Abdomen soft nontender. Neuro alert awake oriented. No asterixis. Extremities no edema. Results Reviewed Results Reviewed: Abdominal ultrasonogram 2022 RIGHT KIDNEY: 2.9 cm simple cyst in the midpole. 3.3 cm simple cyst in the lower pole. No imaging follow-up is recommended. No hydronephrosis or renal calculi. The kidney measures 12.3 cm in maximum dimension. LEFT KIDNEY: 1.8 cm questionably septated parapelvic cyst in the lower pole. 2.7 cm thinly septated parapelvic cyst in the upper pole. No imaging follow-up is recommended. No hydronephrosis or renal calculi. The kidney measures 14.0 cm in maximum dimension. Nephrology Results: Hgb, (14.0-18.0) 15.9 g/dl 10/11/24 WBC, (4.8-10.8) 10.5 X10*3/uL 10/11/24 Plt Count, (160-400) 240 X10*3/uL 10/11/24 Sodium, (135-145) 137 mmol/L 10/11/24 Potassium, (3.3-5.1) 3.8 mmol/L 10/11/24 Chloride, (96-108) 97 mmol/L 10/11/24 Carbon Dioxide, (22-29) 32 mmol/L H 10/11/24 BUN, (9-16) 19 mg/dL H 10/11/24 Creatinine, (0.5-1.4) 0.96 mg/dL 10/11/24 Calcium, (8.4-10.2) 9.6 mg/dL 10/11/24 Urine Protein, (Neg-Trace) Trace mg/dL 10/11/24 Urine Creatinine 97.38 mg/dL 10/11/24 Assessment & Plan Assessment & Plan (1) HTN (hypertension): Code(s): I10 - Essential (primary) hypertension Category: Medical Plan 1. Microalbuminuria Most likely from the combination of diabetes mellitus hypertension and obesity. - Maintain blood pressure below 130/80 mmHg to reduce renal stress. - Control blood glucose levels to prevent further renal damage. - Encourage weight loss through diet and exercise to alleviate kidney stress. Maximize MAT inhibition. 2. Essential Hypertension - Continue current antihypertensive medications: lisinopril and amlodipine. - Monitor blood pressure regularly, aiming for a target of 130/80 mmHg. - Adjust lifestyle to include regular exercise and a balanced diet. And weight loss 3. Type 2 Diabetes Mellitus - Continue Mounjaro for glycemic control and monitor blood glucose levels. - Maintain a low-sugar diet and incorporate healthy eating habits. - Encourage regular physical activity to improve insulin sensitivity. 4. Obesity - Promote weight loss through dietary modifications and increased physical activity. - Monitor weight regularly to assess progress. Orders: Orders Basic Metabolic Panel 1 Year Florian Brennan MD I10 - Essential (primary) hypertension Total Protein Urine Random 1 Year Florian Brennan MD I10 - Essential (primary) hypertension Creatinine Urine 1 Year Florian Brennan MD I10 - Essential (primary) hypertension UA and rflx microscopic 1 Year Florian Brennan MD I10 - Essential (primary) hypertension Medications: Changed From omeprazole 20 mg PO DAILY 90 caps 1RF To omeprazole 20 mg PO DAILY PRN Bright Alfaro, P[employer]IC[employer] HOUSES TRIMMER-BC Coding Level of Care Code New Pt Level 4 (30507) Diagnoses HTN (hypertension) I10
[2025-02-10 11:21] VITALS: BP 140/98; PULSE 96; O2SAT 99; BMI 43.5
== END 2025-02-10 11:37 | disposition home or self-care (01) ==
LOC: HO.HKA 11:03
PROVIDERS: PCP Nurse Practitioner Family; Referring Provider Nurse Practitioner Family; Visit Provider Internal Medicine Hypertension Specialist
DX: I10 Essential (primary) hypertension (principal)
CPT/HCPCS: 99204

== ENCOUNTER 2025-02-16 08:20 | Outpatient (AMB) | payer BC, SELFPAY ==
[2025-02-16 08:22] VITALS: BP 114/76; PULSE 88; RESP 16; TEMP 37.1; O2SAT 96; BMI 43.6
--- NOTE | 2025-02-16 08:22 | A.OFFPC_ITS ---
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 Accompanied by: Self / Same As Patient Allergies No Known Allergies Allergy (Verified 02/16/25 08:37) Medication List - Last Reconciled 02/16/25 by KATHY Reddy- amlodipine 10 mg PO DAILY atorvastatin 20 mg PO BEDTIME 90 days blood sugar diagnostic (FreeStyle Lite Strips) bid blood-glucose meter As directed compression socks, x-large daily lancets (FreeStyle Lancets) test blood sugar 1-2 times a day lisinopril 40 mg PO DAILY Mounjaro (tirzepatide) 7.5 mg (0.5 mL) subcut QWEEK NS omeprazole 20 mg PO DAILY PRN Tobacco use date assessed: 02/16/25 Dental Screening Dental Screen Date: 02/16/25 Did you have a dental visit in the last 12 months?: Yes Did you have a dental problem in the last 6 months where you did not have access to dental care?: No Was dental information given to patient?: Patient has dentist HPI diabetic follow up HPI Details Chief Complaint The patient presents for a diabetes follow-up. History of Present Illness The patient is a 59 year old male presenting with a follow-up for diabetes. He reports he is doing quite well since implementing dietary changes and starting to go to the gym on a regular basis. His A1c was recently 6.1. He denies symptoms of neuropathy, polyuria, or polydipsia. The patient also reports some erectile dysfunction. Regarding health maintenance, his microalbumin screening is up to date. He has a colon screen set up and plans to call to schedule his eye exam. kidney cysts on previous imaging, will have pt consult with urology Social History - Diet: The patient reports he has compl etely adjusted his diet. - Exercise: The patient now goes to the gym on a regular basis and has much more physical activity. Health Maintenance The patient has arranged for a colon screening and will schedule a diabetic eye exam. Review of Systems - General: Reports feeling great. - Neurological: Denies neuropathy. - Endocrine: Denies polyuria or polydips ia. - Genitourinary: Reports some erectile d ysfunction. Physical Exam General: Cooperative, healthy appearing, comfortable, no acute distress and well developed, morbid obesity noted Orientation: Patient oriented x3 Limitations: No limitations Head: Normal to inspection Ears: Hearing grossly normal bilaterally Nose: Normal external nose present Face and sinus: Normal facial exam Eyes: Appearance normal, both eyes and all related structures Neck: Normal visual inspection and Yes full ROM Respiratory: Normal respiratory effort and able to speak in complete sentences. Clear to auscultation bilaterally Cardiovascular: Regular rate and rhythm. Normal S1 and S2 GI: Normal to inspection. Soft to palpation and nontender Skin: No rashes or lesions noted Neuro: Patient oriented x3, positive sensation with use of monofilament of feet Extremities: Normal to inspection, feet intact Results - Labs: Recent A1c was 6.1. - Labs: Microalbumin is up to date. Plan Patient was informed and verbally consented to the use of an ambient scribe for clinic note documentation during this visit. 1. Diabetes Mellitus The patient is managing his diabetes well with lifestyle modifications, including dietary changes and regular gym visits. His recent A1c was 6.1. Plan is to obtain labs in the near future. His microalbumin is up to date, and he will schedule an eye exam. 2. Erectile Dysfunction In response to the patient's report of erectile dysfunction, he will be started on a low dose of sildenafil. A testosterone level will also be checked as part of his upcoming lab work. Discussion Notes I was fairly impressed with his dietary changes and increased physical activity, which has resulted in an A1c of 6.1. We discussed his new complaint of erectile dysfunction, and the plan is to start him on low-dose sildenafil and check a testosterone level. He will get labs in the near future. He confirmed he has a colon screen set up and will call to schedule his eye exam. Patient Instructions - Continue with your diet and exercise. - You will be started on a low dose of s ildenafil for erectile dysfunction. - Please get your bloodwork done, which will include a testosterone test. - Please call today to schedule your eye exam. - Remember to go for your scheduled colo n screening. [facility] Medical History Diabetes mellitus type 2 in obese HTN (hypertension) Hyperkalemia Chronic GERD Tremor Carpal tunnel syndrome Surgical History (Reviewed 02/16/25 @ 08:38 by LINDY ReddyFORM[facility]LY [facility]) Status post correction of deviated nasal septum History of surgical removal of meniscus of knee History of vasectomy History of inguinal hernia repair Family History Father Breast cancer Mental health disorder Substance use disorder Mother Liver cancer Substance use disorder Brother No problems noted. Sister No problems noted. Sister No problems noted. Sister No problems noted. Social History Housing: Other Alcohol intake: current Alcohol intake frequency: a few times a week Patient Tobacco Use Status: Former Tobacco user e-Cigarette/Vaping Use: Never Used service: No Current occupational status: employed Current occupational exposures/hazards: No Cognitive needs: No Hearing needs: No Vision needs: No Questionnaire PHQ-9 Over the last 2 weeks, how often have you been bothered by any of the following problems? 1. Little interest or pleasure in doing things: not at all 2. Feeling down, depressed, or hopeless: not at all 3. Trouble falling or staying asleep, or sleeping too much: not at all 4. Feeling tired or having little energy: not at all 5. Poor appetite or overeating: not at all 6. Feeling bad about yourself - or that you are a failure or have let yourself or your family down: not at all 7. Trouble concentrating on things, such as reading the newspaper or watching television: not at all 8. Moving or speaking so slowly that other people could have noticed. Or the opposite - being so fidgety or restless that you have been moving around a lot more than usual: not at all 9. Thoughts that you would be better off or of hurting yourself in some way: not at all Total score: 0 Depression Screening Interpretation: Negative Depression Screening Done: Yes 62578 - PHQ-9 Billing: Patient declined-do not bill Source: Developed by Drs. Markos Jackson, Aubree Treviño, Ger Chavez and colleagues, with an educational clau from [employer]. Thrive Questionnaire Date Thrive assessed: 07/13/24 I am a: Patient What is your living situation today?: I have a steady place to live Within the past 12 months, did the food you bought not last and you didn't have the money to get more?: Often true Within the past 12 months, did you worry whether your food would run out before you got money to buy more?: Often true Do you have trouble paying for medicines?: No Do you have trouble getting transportation to medical appointments?: No Do you have trouble paying your heating and electricity bill?: No Do you have trouble taking care of your child, family member or friend?: No Do you have trouble with day-to-day activities such as bathing, preparing meals, shopping, managing finances, etc.?: No Are you currently unemployed and looking for a job?: No Are you interested in more education?: No Please select the resources that you would like help with: None Currently or been in a relationship where the following occur: I choose not to answer THRIVE Score: 2 MARTI-7 AMB Questionnaire MARTI-7 Date MARTI - 7 assessed: 02/16/25 Feeling nervous, anxious, or on edge: 0 = Not at all Not being able to stop or control worryin = Not at all Worrying too much about different things: 0 = Not at all Trouble relaxin = Not at all Being so restless that it is hard to sit still: 0 = Not at all Becoming easily annoyed or irritable: 0 = Not at all Feeling afraid as if something awful might happen: 0 = Not at all Total MARTI-7 score (0-4 normal; 5-9 mild; 10-14 moderate; 15-21 severe): 0 Source: Developed by Drs. Markos Jackson, Aubree Treviño, Ger Chavez and colleagues, with an educational clau from [employer]. MARTI-7 Assessment Billing MARTI-7 Assessment Tool: MARTI-7 Assessment 48829 Physical exam (Primary Care) Vital Signs: Last Vital Signs Temp 98.8 F 02/16/25 08:22 Pulse 88 02/16/25 08:22 Resp 16 02/16/25 08:22 BP 114/76 02/16/25 08:22 Pulse Ox 96 02/16/25 08:22 BMI result Body Mass Index 43.6 Tobacco/Smoking Status: Tobacco use Status Tobacco use date assessed 02/16/25 02/16/25 08:34 Patient Tobacco Use Status Former Tobacco user 02/16/25 08:24 e-Cigarette/Vaping Use Never Used 02/16/25 08:24 PHQ-9: PHQ-9 Score PHQ-9: Total score 0 02/16/25 08:34 Depression Screening Interpretation: Negative Thrive Assessment: Date of Thrive Assessment Date Thrive assessed 07/13/24 02/16/25 08:24 Currently or been in a relationship where the following occur: I choose not to answer Results AMB Hemoglobin A1c AMB Hemoglobin A1c 6.1 % Last Edit by Heather Morfin MA on 02/16/25 08:39 Coding Level of Care Code Est Pt Level 3 (39139) Diagnoses Diabetes mellitus type 2 in obese E11.; E66.9 Erectile dysfunction N52.9 Kidney cysts N28.1 Additional Codes MARTI-7 Assessment Billing - MARTI-7 Assessment Tool: MARTI-7 Assessment 96413 ([id number]) Assessment & Plan Assessment & Plan (1) Diabetes mellitus type 2 in obese: Code(s): E11. - Type 2 diabetes mellitus with other specified complication; E66.9 - Obesity, unspecified Category: Medical (2) Erectile dysfunction: Code(s): N52.9 - Male erectile dysfunction, unspecified Category: Medical (3) Kidney cysts: Code(s): N28.1 - Cyst of kidney, acquired Category: Medical Plan . Orders: Orders AMB Hemoglobin A1c Today E11. - Type 2 diabetes mellitus with other specified complication, E66.9 - Obesity, unspecified Lipid Panel Today E11. - Type 2 diabetes mellitus with other specified complication, E66.9 - Obesity, unspecified Complete Blood Count Auto Diff Today E11. - Type 2 diabetes mellitus with other specified complication, E66.9 - Obesity, unspecified Comprehensive [place]. Panel Fast Today E11. - Type 2 diabetes mellitus with other specified complication, E66.9 - Obesity, unspecified TSH reflex Free T4 Today E11. - Type 2 diabetes mellitus with other specified complication, E66.9 - Obesity, unspecified UA CC w/rflx Micro + Cult Today E11. - Type 2 diabetes mellitus with other specified complication, E66.9 - Obesity, unspecified Testosterone, Free/Total Today N52.9 - Male erectile dysfunction, unspecified Referrals Urology Referral N28.1 - Cyst of kidney, acquired Medications: New sildenafil (Viagra) administer 30 minutes to 4 hours before activity 25 mg PO DAILY PRN 10 tabs 0RF sexual activity
== END 2025-02-16 08:50 | disposition home or self-care (01) ==
LOC: HO.HMCC 08:21
PROVIDERS: PCP Nurse Practitioner Family; Visit Provider Nurse Practitioner Family
DX: E11.69 Type 2 diabetes mellitus with other specified complication (principal); E66.9 Obesity, unspecified; Z68.41 Body mass index [BMI] 40.0-44.9, adult; N52.9 Male erectile dysfunction, unspecified; N28.1 Cyst of kidney, acquired

== ENCOUNTER → 2025-02-16 08:20 | Outpatient (BNVA) | payer BC, SELFPAY | PROVIDERS: PCP Nurse Practitioner Family; Visit Provider Nurse Practitioner Family | DX: E11.69 Type 2 diabetes mellitus with other specified complication (principal); E66.9 Obesity, unspecified; E11.9 Type 2 diabetes mellitus without complications; N52.9 Male erectile dysfunction, unspecified; N28.1 Cyst of kidney, acquired; Z68.41 Body mass index [BMI] 40.0-44.9, adult | CPT/HCPCS: 83036; 96127 ==

== ENCOUNTER 2025-02-21 06:27 | Outpatient (REF) | payer BC, SELFPAY ==
[2025-02-21 10:17] LABS: Appearance Urine Clear; Glucose Urine UA Negative (Negative); PH 5.5 (5.0-9.0); Specific Gravity - Urine 1.020 (1.005-1.025)
[2025-02-21 10:18] LABS: MANUAL DIFF FLAG NO
[2025-02-21 10:35] LABS: Hematocrit 50.8 % (42.0-52.0); Hemoglobin 16.6 g/dl (14.0-18.0); Imm Gran Abs Auto 0.16 X10*3/uL (0.00-0.03); Imm Gran Pct Auto 1.9 % (0.0-0.4); Lymphocytes Absolute Auto 1.5 X10*3/uL (1.2-4.9); Mean Corpuscular HGB Conc 32.7 g/dl (31.0-36.0); Mean Corpuscular Hemoglobin 30.2 pg (27.0-33.0); Mean Corpuscular Volume 92.5 fL (80.0-98.0); NRBC Abs Auto 0.000 X10*3/uL (0.0-0.012); NRBC Pct Auto 0.0 /100WBC (0.0-0.2); Platelet Count 236 X10*3/uL (160-400); Red Blood Count 5.49 X10*6/uL (4.60-5.80); White Blood Count 8.2 X10*3/uL (4.8-10.8)
[2025-02-21 11:16] LABS: Alanine Aminotransferase 48 U/L (0-40); Albumin Level 4.7 g/dL (3.5-5.0); Alkaline Phosphatase 136 U/L (39-117); Anion Gap 13 (12-20); Aspartate Amino Transferase 38 U/L (5-37); Blood Urea Nitrogen 17 mg/dL (9-16); Calcium 10.0 mg/dL (8.4-10.2); Carbon Dioxide 27 mmol/L (22-29); Chloride 102 mmol/L (96-108); Cholesterol 124 mg/dL (<200); Estimated Glomerular Filt Rate > 60; HDL Cholesterol 47 mg/dL (>40); Potassium 4.8 mmol/L (3.3-5.1); Sodium 137 mmol/L (135-145); Total Protein 7.5 g/dL (6.5-8.0); Triglycerides 63 mg/dL (<150)
[2025-03-02 16:43] LABS: Testosterone, Free 69.9 pg/mL (35.0-155.0)
== END 2025-02-21 06:28 | disposition home or self-care (01) ==
LOC: HO.HMGCLDS 06:27
PROVIDERS: PCP Nurse Practitioner Family; Visit Provider Nurse Practitioner Family
DX: E11.69 Type 2 diabetes mellitus with other specified complication (principal); E66.9 Obesity, unspecified; N52.9 Male erectile dysfunction, unspecified
CPT/HCPCS: 36415; 80053; 80061; 81003; 84402; 84403; 84443; 85025

== ENCOUNTER 2025-02-22 08:09 | Outpatient (AMB) | payer BC, SELFPAY ==
[2025-02-22 08:15] VITALS: BP 136/84; PULSE 88; RESP 16; TEMP 36.7; O2SAT 96; BMI 43.9
--- NOTE | 2025-02-22 08:15 | AM.OFFWIN_ITS ---
Intake Vital Signs 02/22/25 08:15 Height 5 ft 11 in Weight 315 lb BMI 43.9 BP 136/84 Blood Pressure Location Lt brachial Position Sitting Respiration 16 Pulse 88 Pulse Source Pulse Oximeter Temp 98.0 F Temp Source Oral Pulse Oximetry (%) 96 Oxygen Delivery Method Room Air Intake Visit Reasons: ep lightheaded dizziness and ringing in both ears Intake Note: Pt is here today c/o lightheadedness and bilateral ear ringing x6wks ago Patient Tobacco Use Status: Former Tobacco user Allergies No Known Allergies Allergy (Verified 02/22/25 08:16) HPI HPI Comments History of Present Illness Details History of Present Illness - The patient is a 59-year-old male pres enting with lightheadedness, ear ringing, and dizziness. - Lightheadedness and tinnitus began maxine roximately six weeks ago, coinciding with the initiation of Mounjaro therapy. - The patient experiences daily ear ring ing, primarily in the morning, accompanied by lightheadedness and dizziness during work activities. - The patient denies nausea, vomiting, o r room spinning but reports feeling off balance. - Constipation was noted, potentially re lated to slowed gastrointestinal transit from Mounjaro. - The patient had an upper respiratory i nfection approximately two months ago. - The patient has experienced premature ventricular contractions (PVCs). - The patient reports vision changes con sistent with aging, with plans to visit an eye doctor but denies any acute vision changes. Review of Systems - Neurological: Reports lightheadedness and dizziness. Denies room spinning. - Ears: Reports tinnitus, primarily in t he morning. - Gastrointestinal: Reports constipation . Denies nausea or vomiting. - Cardiovascular: Reports occasional pal pitations. Denies chest pain or syncope. - Vision: Reports gradual vision changes consistent with aging. Denies acute vision changes. All systems reviewed and are unremarkable except as noted in HPI Physical Exam General: Cooperative, healthy appearing, comfortable, no acute distress and well developed Orientation: Patient oriented x3 Limitations: No limitations Head: Normal to inspection Ears: Hearing grossly normal bilaterally, EACs normal bilaterally, TM's with trace fluid bilaterally Nose: Normal External nose present Face and sinus: Normal facial exam Eyes: Appearance normal, both eyes and all related structures Neck: Normal visual inspection and Yes full ROM Respiratory: Normal respiratory effort and able to speak in complete sentences. CTAB Cardiac: regular rate and rhythm, normal s1 and s2 Skin: No rashes or lesions noted Neuro: Patient oriented x3 Extremities: Normal to inspection [facility] Medical History Diabetes mellitus type 2 in obese HTN (hypertension) Hyperkalemia Chronic GERD Tremor Carpal tunnel syndrome Surgical History Status post correction of deviated nasal septum History of surgical removal of meniscus of knee History of vasectomy History of inguinal hernia repair Family History Father Breast cancer Mental health disorder Substance use disorder Mother Liver cancer Substance use disorder Brother No problems noted. Sister No problems noted. Sister No problems noted. Sister No problems noted. Social History Housing: Other Alcohol intake: current Alcohol intake frequency: a few times a week Patient Tobacco Use Status: Former Tobacco user e-Cigarette/Vaping Use: Never Used service: No Current occupational status: employed Current occupational exposures/hazards: No Cognitive needs: No Hearing needs: No Vision needs: No Physical Exam Vital Signs: Last Vital Signs Temp 98.0 F 02/22/25 08:15 Pulse 88 02/22/25 08:15 Resp 16 02/22/25 08:15 BP 136/84 02/22/25 08:15 Pulse Ox 96 02/22/25 08:15 Oxygen Delivery Method Room Air 02/22/25 08:15 BMI result Body Mass Index 43.9 Assessment & Plan Assessment & Plan (1) Acute effusion of both middle ears: Code(s): H65.193 - Other acute nonsuppurative otitis media, bilateral Plan: Patient was informed and verbally consented to the use of an ambient scribe for clinic note documentation during this visit. Lightheadedness And Dizziness - Considered possible inner ear fluid retention as a cause. - Recommended use of Flonase nasal spray once daily to help dry up fluid. - Follow up with PCP if no improvement in 2-3 weeks. Medications: New fluticasone propionate 50 mcg/actuation administer into each nostril 1 spray intranasal Q24H 48 grams 0RF 90 days Coding Level of Care Code Est Pt Level 3 (02812) Diagnoses Acute effusion of both middle ears H65.193
== END 2025-02-22 08:37 | disposition home or self-care (01) ==
PROVIDERS: PCP Nurse Practitioner Family; Visit Provider Physician Assistant
DX: H65.193 Other acute nonsuppurative otitis media, bilateral (principal)